=== PATIENT | female | born 1955 | race Caucasian/White ===

== ENCOUNTER → 2017-09-27 08:19 | Outpatient (CLI) | payer OTHER, SELFPAY ==
--- NOTE | 2017-09-27 08:22 | BI_ITS ---
MAMMOGRAPHY - BILATERAL SCREENING REASON FOR EXAM: Female, 62 years old. Routine annual screening examination. PERTINENT HISTORY: Mother with breast cancer. TECHNIQUE: Digital bilateral breast eduar (3D mammographic acquisition) in the CC and MLO projections. 2-D mediolateral oblique (MLO) and craniocaudad (CC) views of both breasts were obtained. CAD: Full Field Digital Mammography with Computer Added Detection was performed. COMPARISON: Comparison is made with prior study dated December 06, 2016 and December 13, 2014. FINDINGS: Breast Composition: There are scattered areas of fibroglandular density. There are no dominant masses or suspicious calcifications. The previously seen well-defined nodule in the upper lateral portion of the left breast has decreased in size. It presently measures 4.3 mm. Stable scattered calcifications in the upper outer aspect of the right breast. No other significant abnormalities are identified. There has been no significant change since the prior study. BI/SCREENING MAMM (CAD), BILAT IMPRESSION: Stable bilateral screening mammogram. Yearly follow-up mammogram recommended. (A) ASSESSMENT CATEGORY: BIRADS Category 2: Benign. A letter regarding these results will be sent to the patient by the facility within 30 days. Approximately 10% of breast cancers are not detected by mammography. A normal mammogram should not delay biopsy of a clinically suspicious abnormality. [id number] Electronically Signed: Juan Pablo Preston MD at 8:16 EDT Tel [phone], Service support ,
== END ==
PROVIDERS: Visit Provider Obstetrics & Gynecology
DX: Z12.31 Encounter for screening mammogram for malignant neoplasm of breast (principal)
CPT/HCPCS: 77063; 77067

== ENCOUNTER → 2018-12-02 | Outpatient (CLI) | payer OTHER, SELFPAY ==
--- NOTE | 2018-12-02 07:15 | BI_ITS ---
MAMMOGRAPHY - BILATERAL SCREENING 3-D TOMOSYNTHESIS REASON FOR EXAM: Female, 63 years old. Bilateral Screening 3-D tomosynthesis PERTINENT HISTORY: Mother with breast cancer.. TECHNIQUE: 2-D mammograms and 3-D Tomosynthesis of the breast (s) were performed. CAD was performed. COMPARISON: 09/27/2017 FINDINGS: The breast composition is heterogeneously dense that can obscure small breast masses. Scattered benign calcifications are seen. No dense spiculated masses or suspicious microcalcifications are identified. No architectural distortion is identified. There is no skin thickening or retraction. Stable 5 mm nodule in the upper outer quadrant of the left breast. There has been no significant change since the prior study. BI/SCREEN MAMM (CAD) W/VENKATA BILAT IMPRESSION: No mammographic signs of malignancy. Routine yearly mammograms recommended. ASSESSMENT CATEGORY: BIRADS Category 2: Benign. A letter regarding these results will be sent to the patient by the facility within 30 days. FOLLOW UP RECOMMENDATION: Yearly follow up mammogram recommended. (A) Approximately 10% of breast cancers are not detected by mammography. A normal mammogram should not delay biopsy of a clinically suspicious abnormality. Electronically Signed: Tahir Magana MD at 8:32 EDT , Service support ,
== END | disposition home or self-care (01) ==
LOC: OPBI 07:14
PROVIDERS: Family Provider Family Medicine; PCP Family Medicine; Referring Provider Obstetrics & Gynecology; Visit Provider Obstetrics & Gynecology
DX: Z12.31 Encounter for screening mammogram for malignant neoplasm of breast (principal)
CPT/HCPCS: 77063; 77067

== ENCOUNTER → 2020-03-29 16:03 | Outpatient (CLI) | payer OTHER, SELFPAY ==
--- NOTE | 2020-03-29 16:07 | BI_ITS ---
MAMMOGRAPHY - BILATERAL SCREENING REASON FOR EXAM: Female, 65 years old. Routine annual screening examination. PERTINENT HISTORY: Mother with breast cancer. TECHNIQUE: Digital bilateral breast venkata (3D mammographic acquisition) in the CC and MLO projections. 2-D mediolateral oblique (MLO) and craniocaudad (CC) views of both breasts were obtained. CAD: Full Field Digital Mammography with Computer Added Detection was performed. COMPARISON: Comparison is made with prior study dated 12/02/2018 and 09/27/2017. FINDINGS: Breast Composition: The breasts are heterogeneously dense, which may obscure small masses. There are no dominant masses or suspicious calcifications. Stable scattered calcifications in the upper slightly lateral aspect of the right breast. Stable 4.3 mm well-defined nodule in the medial portion of the right breast. No other significant abnormalities are identified. There has been no significant change since the prior study. BI/SCREEN MAMM (CAD) W/VENKATA BILAT IMPRESSION: Stable bilateral screening mammogram. Yearly follow-up mammogram recommended. (A) ASSESSMENT CATEGORY: BIRADS Category 2: Benign. A letter regarding these results will be sent to the patient by the facility within 30 days. Approximately 10% of breast cancers are not detected by mammography. A normal mammogram should not delay biopsy of a clinically suspicious abnormality. [id number] Electronically Signed: Juan Pablo Preston, at 8:04 EST , Service support ,
== END ==
PROVIDERS: PCP Family Medicine; Referring Provider Obstetrics & Gynecology; Visit Provider Obstetrics & Gynecology
DX: Z12.31 Encounter for screening mammogram for malignant neoplasm of breast (principal); Z80.3 Family history of malignant neoplasm of breast
CPT/HCPCS: 77063; 77067

== ENCOUNTER → 2022-01-03 | Outpatient (CLI) | payer MEDICARE, SELFPAY ==
--- NOTE | 2022-01-03 16:48 | BI_ITS ---
MAMMOGRAPHY - BILATERAL SCREENING REASON FOR EXAM: Female, 66 years old. Routine annual screening examination. PERTINENT HISTORY: Mother with breast cancer. TECHNIQUE: Digital bilateral breast venkata (3D mammographic acquisition) in the CC and MLO projections. 2-D mediolateral oblique (MLO) and craniocaudad (CC) views of both breasts were obtained. CAD: Full Field Digital Mammography with Computer Added Detection was performed. COMPARISON: Comparison is made with prior study dated 03/29/2020 and 12/02/2018. FINDINGS: Breast Composition: The breasts are heterogeneously dense, which may obscure small masses. There are no dominant masses or suspicious calcifications. Stable scattered calcifications in the upper slightly lateral aspect of the right breast. The previously seen 4.3 mm well-defined nodule in the medial portion of the right breast has decreased in size and is almost completely resolved. Stable small benign-appearing bilateral axillary lymph nodes. No other significant abnormalities are identified. There has been no significant change since the prior study. BI/SCRN MAMM (CAD)W/VENKATA BILAT IMPRESSION: Stable bilateral screening mammogram. Yearly follow-up mammogram recommended. (A) ASSESSMENT CATEGORY: BIRADS Category 2: Benign. A letter regarding these results will be sent to the patient by the facility within 30 days. Approximately 10% of breast cancers are not detected by mammography. A normal mammogram should not delay biopsy of a clinically suspicious abnormality. [id number] Electronically Signed: Juan Pablo Preston MD at 8:37 EDT ,
== END | disposition home or self-care (01) ==
PROVIDERS: PCP Family Medicine; Visit Provider Family Medicine
DX: Z12.31 Encounter for screening mammogram for malignant neoplasm of breast (principal); Z80.3 Family history of malignant neoplasm of breast
CPT/HCPCS: 77063; 77067

== ENCOUNTER → 2023-11-25 | Outpatient (CLI) | payer MEDICARE, SELFPAY ==
--- NOTE | 2023-11-25 16:29 | BI_ITS ---
MAMMOGRAPHY - BILATERAL SCREENING REASON FOR EXAM: Female, 68 years old. Routine annual screening examination. PERTINENT HISTORY: Mother with breast cancer. TECHNIQUE: Digital bilateral breast venkata (3D mammographic acquisition) in the CC and MLO projections. 2-D mediolateral oblique (MLO) and craniocaudad (CC) views of both breasts were obtained. CAD: Full Field Digital Mammography with Computer Added Detection was performed. COMPARISON: Comparison is made with prior study January 03, 2022 and March 29, 2020. FINDINGS: Breast Composition: The breasts are heterogeneously dense, which may obscure small masses. There are no dominant masses or suspicious calcifications. Stable scattered calcifications in the upper slightly lateral aspect the right breast. No other significant abnormalities are identified. There has been no significant change since the prior study. BI/SCRN MAMM (CAD)W/VENKATA BILAT IMPRESSION: Stable bilateral screening mammogram. Yearly follow-up mammogram recommended. (A) ASSESSMENT CATEGORY: BIRADS Category 2: Benign. A letter regarding these results will be sent to the patient by the facility within 30 days. Approximately 10% of breast cancers are not detected by mammography. A normal mammogram should not delay biopsy of a clinically suspicious abnormality. [id number] Electronically Signed: Juan Pablo Preston MD at 7:39 EDT ,
== END | disposition home or self-care (01) ==
LOC: OPBI 11-26 07:11
PROVIDERS: PCP Family Medicine; Referring Provider Family Medicine; Visit Provider Family Medicine
DX: Z12.31 Encounter for screening mammogram for malignant neoplasm of breast (principal)
CPT/HCPCS: 77063; 77067

== ENCOUNTER → 2025-04-12 | Outpatient (CLI) | payer MEDICARE, SELFPAY ==
--- NOTE | 2025-04-12 16:58 | BI_ITS ---
EXAM: SCRN MAMM (CAD)W/VENKATA BILAT DATE: 04/12/2025 CLINICAL HISTORY: F, Age 70 y/o , SCREENING TECHNIQUE: Procedure Code: [id number] Modality: MG Procedure: SCRN MAMM (CAD)W/VENKATA BILAT COMPARISON: Prior exam(s) were compared FINDINGS: TISSUE DENSITY: The breasts are heterogeneously dense, which may obscure small masses. Bilateral Breast Mammographic Findings: No significant masses, calcifications or other abnormalities are identified. BI/SCRN MAMM (CAD)W/VENKATA BILAT IMPRESSION: No mammographic evidence of malignancy in either breast. OVERALL FINAL ASSESSMENT BI-RADS 1: NEGATIVE. RECOMMENDATION: Routine annual follow-up in 1 Year Additional Recommendation none A letter with findings and recommendations will be mailed to the patient. Reading Location: [id number]
--- OUTSIDE RECORDS SUMMARY | 2025-04-13 07:10 | XMS RPT_ITS | CCD ---
Author Organization [facility] Care Team Providers Care Forest Fire Equipment Operator Name Role Phone CRUZHAVENNIKOLAY Ly Unavailable Unavailable Gina FOLEY, Salty Salas Unavailable [phone] Hunter FOLEY, Dr. Molina Unavailable [facility], . Unavailable [phone] Adán MAIL DISTRIBUTOR, Mellisa Unavailable Benjamin GURROLAN, Tish Unavailable Unavailable Amanda LAZCANO, Raffy Mcfarland Unavailable Gisell Patel Unavailable Unavailable Manuel MAIL DISTRIBUTOR, Jose Unavailable Unavailable Angie Farley R Unavailable Unavailable Tommy ACCOUNTING MANAGER CPA, Celeste Unavailable Unavailable Vess MAIL DISTRIBUTOR, Neilee L Unavailable Unavailable Unavailable Unavailable SALTY RAMOS Admitting Unavailable TINO BILLS Consulting Unavailable SALTY RAMOS Attending Unavailable SALTY RAMOS Primary Care Unavailable PROVIDER, UNKNOWN Consulting Unavailable PROVIDER, UNKNOWN Consulting Unavailable PROVIDER, UNKNOWN Consulting Unavailable Nini Jolly LPN Unavailable Unavailable Salty Ramos Referring Unavailable Salty Ramos Attending Unavailable Salty Ramos Primary Care Unavailable Allergies Allergy Classification Reported Allergen(s) Allergy Type Date of Onset Reaction(s) Facility (20 sources) Ciprofloxacin Drug Allergy [facility].; [facility], [facility]. (20 sources) Lisinopril Drug Allergy Cough [facility], [facility].; [facility], [facility]. Medications Current Medications Medication Drug Class(es) Dates Sig (Normalized) Sig (Original) atorvastatin 10 mg oral tablet (20 sources) HMG-CoA Reductase Inhibitor Start: 10-31-2023 atorvastatin 10 mg tablet ; 1 (one) Tablet qhs for 0 days Quantity: 90 {Tablet} Refills: 3 Ordered: 14-Nov-2024 MD Salty Ramos Start: 25-Mar-2024 Start: 08-06-2023 atorvastatin 1 0 mg tablet ; 1 (one) Tablet qhs for 0 days Quantity: 90 {Tablet} Refills: 0 Ordered: 06-Aug-2023 MD Salty Ramos Start: 06-Aug-2023 hydroCHLOROthiazide 25 mg oral tablet (20 sources) Thiazide Diuretic Start: 03-25-2024 hydroCHLOROthiazide 25 mg tablet ; 1 (one) Tablet daily for 0 days Quantity: 90 {Tablet} Refills: 3 Ordered: 25-Mar-2024 MD Salty Ramos Start: 25-Mar-2024 Start: 02-11-2024 hydroCHLOROthi azide 12.5 mg tablet ; 1 (one) Tablet daily for 0 days Quantity: 90 {Tablet} Refills: 0 Ordered: 11-Feb-2024 MD Salty Ramos Start: 11-Feb-2024 Start: 08-06-2023 hydroCHLOROthi azide 12.5 mg tablet ; 1 (one) Tablet daily for 0 days Quantity: 90 {Tablet} Refills: 1 Ordered: 06-Aug-2023 MD Salty Ramos Start: 06-Aug-2023 losartan potassium 50 mg oral tablet (20 sources) Angiotensin 2 Receptor Garrick Start: 04-27-2024 losartan 50 mg table t ; 1 (one) Tablet daily for 0 days Quantity: 90 {Tablet} Refills: 3 Ordered: 27-Apr-2024 MD Salty Ramos Start: 27-Apr-2024 Comments: take with the 25mg Start: 02-11-2024 losartan 50 mg tablet ; 1 (one) Tablet daily for 0 days Quantity: 90 {Tablet} Refills: 3 Ordered: 25-Mar-2024 MD Salty Ramos Start: 25-Mar-2024 Start: 07-28-2023 losartan 50 mg tablet ; 1 (one) Tablet daily for 0 days Quantity: 90 {Tablet} Refills: 1 Ordered: 28-Jul-2023 MD Salty Ramos Start: 28-Jul-2023 Start: 03-27-2023 losartan 25 mg tablet ; 1 (one) tablet daily for 0 days Quantity: 90 {Tablet} Refills: 3 Ordered: 25-Mar-2024 MD Salty Ramos Start: 25-Mar-2024 Comments: adding to the 50 mg Comment on above: adding to the 50 mg take with the 25mg metFORMIN hydrochloride 1000 mg oral tablet (20 sources) Biguanide Start: 10-31-2023 metFORMIN 1,000 mg tablet ; 1/2 tablet Tablet q12hrs for 0 days Quantity: 90 {Tablet} Refills: 3 Ordered: 25-Mar-2024 MD Salty Ramos Start: 25-Mar-2024 Start: 08-06-2023 metFORMIN 1,00 0 mg tablet ; 1/2 tablet Tablet q12hrs for 0 days Quantity: 90 {Tablet} Refills: 0 Ordered: 06-Aug-2023 MD Salty Ramos Start: 06-Aug-2023 Start: 06-30-2018 End: 09-30-2018 take 1 tablet by mouth once daily MetFORMIN HCl ER 750 MG Oral Tablet Extended Release 24 Hour ; 1 (one) Tablet Tablet daily for 0 days Quantity: 30 {Tablet} Refills: 3 Ordered: 30-Sep-2018 MD Salty Ramos Start: 30-Jun-2018 End: 30-Sep-2018 Status: Inactive semaglutide 7 mg oral tablet (14 sources) Start: 12-17-2024 semaglutide 7 mg tablet ; 1 (one) tablet daily for 0 days Quantity: 90 {Tablet} Refills: 0 Ordered: 17-Dec-2024 MD Salty Ramos Start: 17-Dec-2024 Start: 09-23-2024 semaglutide 7 mg tablet ; 1 (one) tablet daily for 0 days Quantity: 90 {Tablet} Refills: 0 Ordered: 23-Sep-2024 MD Salty Ramos Start: 23-Sep-2024 Start: 03-25-2024 semaglutide 3 mg tablet ; 1 (one) tablet daily for 0 days Quantity: 90 {Tablet} Refills: 1 Ordered: 25-Mar-2024 KEIRY Mccain Start: 25-Mar-2024 Completed/Discontinued Medications Medication Drug Class(es) Dates Sig (Normalized) Sig (Original) amLODIPine 5 mg oral tablet (20 sources) Dihydropyridine Calcium Channel Garrick Start: 08-14-2020 End: 06-08-2021 take 1 tablet by mouth once daily amLODIPine Besylate 5 MG Oral Tablet ; 1 (one) Tablet daily for 0 days Quantity: 90 {Tablet} Refills: 3 Ordered: 08-Jun-2021 Adán KEIRY Pak Start: 14-Aug-2020 End: 08-Jun-2021 Status: Inactive amoxicillin 875 mg / clavulanate 125 mg oral tablet (20 sources) Penicillin-class Antibacterial Start: 04-20-2018 End: 06-16-2018 take 1 tablet by mouth twice daily Amoxicillin-Pot Clavulanate 875-125 MG Oral Tablet ; 1 (one) Tablet bid for 0 days Quantity: 20 {Tablet} Refills: 0 Ordered: 16-Jun-2018 KEIRY Alexander Start: 20-Apr-2018 End: 16-Jun-2018 Status: Inactive blood-glucose meter kit (20 sources) Start: 07-03-2022 End: 03-27-2023 blood-glucose meter kit ; 1 (one) Kit as directed for 0 days Quantity: 1 {Each} Refills: 0 Ordered: 27-Mar-2023 KEIRY Mccain Start: 03-Jul-2022 End: 27-Mar-2023 Status: Inactive 24 hr dilTIAZem hydrochloride 180 mg extended release oral tablet (20 sources) Calcium Channel Garrick Start: 07-03-2022 End: 10-23-2022 take 1 tablet by mouth once daily dilTIAZem HCl ER Coated Beads 180 MG Oral Tablet Extended Release 24 Hour ; 1 (one) Tablet daily for 0 days Quantity: 30 {Tablet} Refills: 0 Ordered: 23-Oct-2022 MD Salty Ramos Start: 03-Jul-2022 End: 23-Oct-2022 Status: Inactive empagliflozin 10 mg oral tablet (20 sources) Sodium-Glucose Cotransporter 2 Inhibitor Start: 03-27-2022 End: 04-12-2022 take 1 tablet by mouth once daily Jardiance 10 MG Oral Tablet ; 1 (one) Tablet daily for 0 days Quantity: 90 {Tablet} Refills: 1 Ordered: 12-Apr-2022 MD Salty Ramos Start: 27-Mar-2022 End: 12-Apr-2022 Status: Inactive glipiZIDE 10 mg oral tablet (20 sources) Sulfonylurea Start: 03-18-2024 End: 06-24-2024 glipiZIDE 10 mg tablet ; 1 (one) Tablet daily for 0 days Quantity: 90 {Tablet} Refills: 3 Ordered: 24-Jun-2024 KEIRY Mccain Start: 25-Mar-2024 End: 24-Jun-2024 Status: Discontinued Start: 09-29-2023 glipiZIDE 10 m g tablet ; 1 (one) Tablet daily for 0 days Quantity: 90 {Tablet} Refills: 1 Ordered: 29-Sep-2023 MD Salty Ramos Start: 29-Sep-2023 Start: 03-27-2023 glipiZIDE 10 m g tablet ; 1 (one) Tablet daily for 0 days Quantity: 90 {Tablet} Refills: 1 Ordered: 27-Mar-2023 MD Slaty Ramos Start: 27-Mar-2023 hydroCHLOROthiazide 12.5 mg / losartan potassium 50 mg oral tablet (20 sources) Thiazide Diuretic, Angiotensin 2 Receptor Garrick Start: 09-30-2018 End: 12-28-2018 take 1 tablet by mouth once daily Losartan Potassium-HCTZ 50-12.5 MG Oral Tablet ; 1 (one) Tablet daily for 0 days Quantity: 60 {Tablet} Refills: 5 Ordered: 28-Dec-2018 KEIRY Mccain Start: 30-Sep-2018 End: 28-Dec-2018 Status: Inactive SITagliptin 50 mg oral tablet (20 sources) Dipeptidyl Peptidase 4 Inhibitor Start: 07-02-2019 End: 05-08-2020 take 1 tablet by mouth once daily Januvia 50 MG Oral Tablet ; 1 (one) Tablet Tablet daily for 0 days Quantity: 90 {Tablet} Refills: 1 Ordered: 08-May-2020 KEIRY Mccain Start: 02-Jul-2019 End: 08-May-2020 Status: Inactive sulfamethoxazole 800 mg / trimethoprim 160 mg oral tablet (20 sources) Dihydrofolate Reductase Inhibitor Antibacterial, Sulfonamide Antimicrobial Start: 08-26-2018 End: 09-30-2018 take 1 tablet by mouth twice daily Sulfamethoxazole-T rimethoprim 800-160 MG Oral Tablet ; 1 (one) Tablet bid for 0 days Quantity: 10 {Tablet} Refills: 0 Ordered: 30-Sep-2018 KEIRY Ngo Start: 26-Aug-2018 End: 30-Sep-2018 Status: Inactive Problems Active Problems Problem Classification Problem Date Documented Da te Episodic/Chronic Chronic kidney disease (20 sources) Chronic kidney disease stage 3A ; Translations: [Chronic kidney disease, Stage III (moderate)] 03-25-2024 Chronic Diabetes mellitus with complications (20 sources) Proteinuric nephropathy due to diabetes mellitus; Translations: [Type 2 diabetes mellitus with diabetic nephropathy] 07-03-2022 Chronic Diabetes mellitus without complication (20 sources) Type 2 diabetes mellitus; Translations: [Type 2 diabetes mellitus without complications] 03-27-2023 Chronic Comment on above: metformin, glipizide metformin, glipizide , semeglutide Disorders of lipid metabolism (20 sources) Hyperlipidemia; Translations: [Hyperlipidemia, unspecified] 03-19-2023 Chronic Comment on above: atorvastatin 07/2023 atorvastatin Essential hypertension (20 sources) Hypertensive disorder; Translations: [Essential (primary) hypertension] 03-27-2023 Chronic Comment on above: hctz, losartan, hctz, losartan 25 an d 50 Genitourinary symptoms and ill-defined conditions (20 sources) Dysuria; Translations: [Dysuria] 08-26-2018 Episodic Nausea and vomiting (20 sources) Nausea; Translations: [Nausea] 11-20-2021 Episodic Other gastrointestinal disorders (20 sources) Stool finding; Translations: [Other fecal abnormalities] 11-20-2021 Episodic Other lower respiratory disease (20 sources) Angiotensin-converti ng-enzyme inhibitor adverse reaction; Translations: [Cough] 03-27-2023 Episodic Other lower respiratory disease (20 sources) Chronic cough; Translations: [Cough] 07-03-2022 Episodic Other nutritional; endocrine; and metabolic disorders (20 sources) Body mass index 30+ - obesity; Translations: [Body mass index (BMI) 31.0-31.9, adult] 03-27-2023 Chronic Other nutritional; endocrine; and metabolic disorders (2 sources) Body mass index 25-29 - overweight; Translations: [Body mass index (BMI) 29.0-29.9, adult] 07-02-2019 Episodic Other nutritional; endocrine; and metabolic disorders (20 sources) Overweight in adulthood with body mass index of 25 or more but less than 30; Translations: [Body mass index (BMI) 29.0-29.9, adult] 07-02-2019 Episodic Other screening for suspected conditions (not mental disorders or infectious disease) (20 sources) Patient encounter status; Translations: [Encounter for screening mammogram for malignant neoplasm of breast] Onset: 03-18-2025 03-27-2023 Episodic Other skin disorders (20 sources) Disorder of skin of upper limb; Translations: [Disorder of the skin and subcutaneous tissue, unspecified] 07-03-2022 Episodic Other skin disorders (20 sources) Seborrheic keratosis; Translations: [Other seborrheic keratosis] 06-30-2018 Episodic Pneumonia (except that caused by tuberculosis or sexually transmitted disease) (20 sources) Community acquired pneumonia; Translations: [Pneumonia, unspecified organism] 04-10-2018 Episodic Residual codes; unclassified (20 sources) Up-to-date with immunizations; Translations: [Personal history of other drug therapy] 03-22-2021 Episodic Residual codes; unclassified (20 sources) Non-smoker; Translations: [Other specified health status] 03-27-2023 Episodic Residual codes; unclassified (20 sources) Not up to date with immunizations; Translations: [Other specified personal history presenting hazards to health] 03-27-2023 Episodic Comment on above: needs shingrix, Pneu mo 24 in 2022 needs shingrix Residual codes; unclassified (20 sources) Cancer cervix screening - not needed; Translations: [Procedure and treatment not carried out for other reasons] 03-27-2023 Episodic Unclassified (1 source) Unknown / UNK(Unknown) Onset: 02-19-2017 Unclassified (20 sources) Number of Children 03-27-2023 Comment on above: 2. Unclassified (20 sources) Number of Pregnancies 03-27-2023 Comment on above: 2. Unclassified (20 sources) Vaginal deliveries 03-27-2023 Comment on above: 2. Unclassified (20 sources) MCR Well Adult - In general the patient feels well with no complaints, has good energy level and is sleeping well. The patient does not exercise and sleeps 5 hours per night. The patient denies having trouble with bathing, dressing/grooming, toileting, preparing meals and ambulating. The patient denies having trouble with grocery shopping, driving, use of telephone, housework, laundry, preparing/taking medications and finances. The patient has a Healthcare Power of Solution Make Up Operator and a Living Will. 03-28-2023 Unclassified (20 sources) [ADDITIONAL REASON] Follow-up for multiple chronic conditions (RAH) - The patient is here for follow-up of hypertension, hyperlipidemia and diabetes. The patient always takes the prescribed medications. No side effects noted. The patient has an active lifestyle but no regular exercise program. The patient's glucose levels are monitored on rare occasion (has supplies but never checks), out of office blood pressure checks occur rarely and dietary compliance is fair often eating foods not normally recommended. The patient has been seen by an eyelet cutter in the past 12 months, but has not had numbness in the feet, had tingling in the feet or had burning in the feet. 03-28-2023 Unclassified (20 sources) Follow-up for multiple chronic conditions (RAH) - The patient is here for follow-up of hypertension, hyperlipidemia and diabetes. The patient always takes the prescribed medications. No side effects noted. The patient has an active lifestyle but no regular exercise program. The patient's glucose levels are monitored on rare occasion, out of office blood pressure checks occur rarely and dietary compliance is fair often eating foods not normally recommended. The patient has been seen by an eyelet cutter in the past 12 months, but has not had numbness in the feet, had tingling in the feet or had burning in the feet. Note for Multiple chronic conditions follow-up: -She has a glucometer but does not use it. She cannot say why. 10-23-2022 Unclassified (20 sources) Follow-up for multiple chronic conditions (RAH) - The patient is here for follow-up of hypertension, hyperlipidemia and diabetes. The patient always takes the prescribed medications. No side effects noted. The patient has an active lifestyle but no regular exercise program. The patient's glucose levels are monitored on rare occasion, out of office blood pressure checks occur rarely and dietary compliance is fair often eating foods not normally recommended. The patient has been seen by an eyelet cutter in the past 12 months, but has not had numbness in the feet, had tingling in the feet or had burning in the feet. 07-03-2022 Unclassified (20 sources) [ADDITIONAL REASON] Follow-up for multiple chronic conditions (RAH) - The patient is here for follow-up of hypertension, hyperlipidemia and diabetes. The patient always takes the prescribed medications. No side effects noted. The patient has an active lifestyle but no regular exercise program. The patient's glucose levels are monitored on rare occasion, out of office blood pressure checks occur rarely and dietary compliance is fair often eating foods not normally recommended. The patient has been seen by an eyelet cutter in the past 12 months, but has not had numbness in the feet, had tingling in the feet or had burning in the feet. 03-27-2022 Unclassified (20 sources) Follow-up for multiple chronic conditions (RAH) - The patient is here for follow-up of hypertension, hyperlipidemia and diabetes. The patient always takes the prescribed medications. No side effects noted (needs refills sent to [facility] today.). The patient has an active lifestyle but no regular exercise program. The patient's glucose levels are monitored on rare occasion, out of office blood pressure checks occur rarely and dietary compliance is fair often eating foods not normally recommended. The patient has been seen by an eyelet cutter in the past 12 months, but has not had numbness in the feet, had tingling in the feet or had burning in the feet. 12-19-2021 Unclassified (18 sources) Follow-up for multiple chronic conditions (RAH) - The patient is here for follow-up of hypertension, hyperlipidemia and diabetes. The patient usually takes the prescribed medications. No side effects noted. The patient has an active lifestyle but no regular exercise program. The patient's glucose levels are monitored on rare occasion, out of office blood pressure checks occur rarely and dietary compliance is fair often eating foods not normally recommended. The patient has been seen by an eyelet cutter in the past 12 months, but has not had numbness in the feet, had tingling in the feet or had burning in the feet. 03-22-2021 Unclassified (10 sources) [ADDITIONAL REASON] MCR Well Adult - In general the patient feels well with no complaints, has good energy level and is sleeping well. The patient takes no supplemental vitamins & iron. The patient exercises 3 - 4 times per week and sleeps 7 hours per night. The patient denies having trouble with bathing, dressing/grooming, toileting, preparing meals and ambulating. The patient denies having trouble with grocery shopping, driving, use of telephone, housework, laundry, preparing/taking medications and finances. The patient does not have Healthcare Power of Solution Make Up Operator or Living Will. 03-22-2021 Unclassified (20 sources) Follow-up for multiple chronic conditions (RAH) - The patient is here for follow-up of hypertension, hyperlipidemia and diabetes. The patient usually takes the prescribed medications. No side effects noted. The patient has an active lifestyle but no regular exercise program. The patient's glucose levels are monitored on rare occasion, out of office blood pressure checks occur rarely and dietary compliance is fair often eating foods not normally recommended. The patient has not been seen by an eyelet cutter in the past 12 months (didnt go because she didnt have insurance), had numbness in the feet, had tingling in the feet or had burning in the feet. 05-08-2020 Unclassified (20 sources) Well adult female - The patient feels well with minor complaints, has good energy level and is sleeping well. The patient takes no supplemental vitamins & iron. The patient does not exercise. The patient sleeps 6 hours per night. 10-22-2019 Unclassified (20 sources) [ADDITIONAL REASON] Pre-operative clearance - Note for Pre-operative clearance: -Plans right total hip replacement with [facility] in Late October. 10-22-2019 Unclassified (20 sources) [ADDITIONAL REASON] Follow-up for multiple chronic conditions (RAH) - The patient is here for follow-up of hypertension, hyperlipidemia and diabetes. The patient usually takes the prescribed medications. No side effects noted. The patient has an active lifestyle but no regular exercise program. The patient's glucose levels are monitored on rare occasion, out of office blood pressure checks occur rarely and dietary compliance is fair often eating foods not normally recommended. The patient has been seen by an eyelet cutter in the past 12 months, but has not had numbness in the feet, had tingling in the feet or had burning in the feet. 10-22-2019 Unclassified (20 sources) Follow-up for multiple chronic conditions (RAH) - The patient is here for follow-up of hypertension, hyperlipidemia and diabetes. The patient usually takes the prescribed medications. No side effects noted. The patient has an active lifestyle but no regular exercise program. The patient's glucose levels are monitored on rare occasion, out of office blood pressure checks occur rarely and dietary compliance is fair often eating foods not normally recommended. The patient has been seen by an eyelet cutter in the past 12 months, but has not had numbness in the feet, had tingling in the feet or had burning in the feet. The patient's last lipid profile was (06/2018). Note for Multiple chronic conditions follow-up: -Acute stress this week due to sudden of family friend. 07-02-2019 Unclassified (20 sources) Well adult female - The patient feels well with no complaints, has good energy level and is sleeping well. The patient takes supplemental vitamins. The patient does not exercise. The patient sleeps 5 hours per night. 06-30-2018 Unclassified (20 sources) [ADDITIONAL REASON] Follow up for multiple chronic conditions - The patient is here for follow-up of diabetes, hyperlipidemia and hypertension. The patient usually takes the prescribed medications. No side effects noted. The patient has an active lifestyle but no regular exercise program. The patient's glucose levels are monitored on rare occasion and out of office blood pressure checks occur rarely. 06-30-2018 Unclassified (19 sources) MCR Well Adult - In general the patient feels well with no complaints, has good energy level and is sleeping well. The patient takes no supplemental vitamins & iron. The patient exercises 3 - 4 times per week and sleeps 7 hours per night. The patient denies having trouble with bathing, dressing/grooming, toileting, preparing meals and ambulating. The patient denies having trouble with grocery shopping, driving, use of telephone, housework, laundry, preparing/taking medications and finances. The patient does not have Healthcare Power of Solution Make Up Operator or Living Will. 03-22-2021 Unclassified (20 sources) Follow-up for multiple chronic conditions (RAH) - The patient is here for follow-up of hypertension, hyperlipidemia and diabetes. The patient always takes the prescribed medications. No side effects noted. The patient has an active lifestyle but no regular exercise program. The patient's glucose levels are monitored on rare occasion (has supplies but never checks), out of office blood pressure checks occur rarely and dietary compliance is fair often eating foods not normally recommended. The patient has been seen by an eyelet cutter in the past 12 months, but has not had numbness in the feet, had tingling in the feet or had burning in the feet. 03-28-2023 Unclassified (14 sources) [ADDITIONAL REASON] MCR Well Adult - In general the patient feels well with no complaints, has good energy level and is sleeping well. The patient does not exercise and sleeps 5 hours per night. The patient denies having trouble with bathing, dressing/grooming, toileting, preparing meals and ambulating. The patient denies having trouble with grocery shopping, driving, use of telephone, housework, laundry, preparing/taking medications and finances. The patient has a Healthcare Power of Solution Make Up Operator and a Living Will. 03-28-2023 Unclassified (9 sources) [ADDITIONAL REASON] Well adult female - The patient feels well with minor complaints, has good energy level and is sleeping well. The patient takes no supplemental vitamins & iron. The patient does not exercise. The patient sleeps 6 hours per night. 10-22-2019 Unclassified (6 sources) Follow up for multiple chronic conditions - The patient is here for follow-up of diabetes, hyperlipidemia and hypertension. The patient usually takes the prescribed medications. No side effects noted. The patient has an active lifestyle but no regular exercise program. The patient's glucose levels are monitored on rare occasion and out of office blood pressure checks occur rarely. 06-30-2018 Unclassified (6 sources) [ADDITIONAL REASON] Well adult female - The patient feels well with no complaints, has good energy level and is sleeping well. The patient takes supplemental vitamins. The patient does not exercise. The patient sleeps 5 hours per night. 06-30-2018 Unclassified (1 source) Pre-operative clearance - Note for Pre-operative clearance: -Plans right total hip replacement with [facility] in Late October. 10-22-2019 Unclassified (1 source) [facility] Well Adult 03-25-2024 Unclassified (13 sources) [facility] Well Adult - In general the patient feels well with no complaints, has good energy level and is sleeping well. The patient takes no supplemental vitamins & iron. The patient does not exercise. The patient denies having trouble with bathing, dressing/grooming, toileting, preparing meals and ambulating. The patient denies having trouble with grocery shopping, driving, use of telephone, housework, laundry, preparing/taking medications and finances. The patient has a Healthcare Power of Solution Make Up Operator and a Living Will. 03-25-2024 Unclassified (13 sources) [ADDITIONAL REASON] Follow-up for multiple chronic conditions (RAH) - The patient is here for follow-up of hypertension, hyperlipidemia and diabetes. The patient always takes the prescribed medications. No side effects noted. The patient has an active lifestyle but no regular exercise program. The patient's glucose levels are monitored on rare occasion (has supplies but never checks) and out of office blood pressure checks occur rarely. The patient has not been seen by an eyelet cutter in the past 12 months, had numbness in the feet, had tingling in the feet or had burning in the feet. 03-25-2024 Unclassified (10 sources) Follow-up for multiple chronic conditions (RAH) - The patient is here for follow-up of hypertension, hyperlipidemia and diabetes. The patient always takes the prescribed medications. No side effects noted. The patient has an active lifestyle but no regular exercise program. The patient's glucose levels are monitored on rare occasion (has supplies but never checks) and out of office blood pressure checks occur rarely. The patient has not been seen by an eyelet cutter in the past 12 months, had numbness in the feet, had tingling in the feet or had burning in the feet. 06-24-2024 Unclassified (1 source) [ADDITIONAL REASON] MCR Well Adult - In general the patient feels well with no complaints, has good energy level and is sleeping well. The patient takes no supplemental vitamins & iron. The patient does not exercise. The patient denies having trouble with bathing, dressing/grooming, toileting, preparing meals and ambulating. The patient denies having trouble with grocery shopping, driving, use of telephone, housework, laundry, preparing/taking medications and finances. The patient has a Healthcare Power of Solution Make Up Operator and a Living Will. 03-25-2024 Urinary tract infections (20 sources) Acute cystitis; Translations: [Acute cystitis without hematuria] 06-16-2018 Episodic Past or Other Problems Problem Classification Problem Date Documented Date Episodic/Chronic Unclassified (1 source) PHILIPP REDDY RANDOM UDS Onset: 02-19-2017 Unclassified (20 sources) Nausea - The onset of the nausea has been sudden and has been occurring in a persistent pattern for 1 week. The course has been increasing. The nausea has no relationship to meals (no appetite). The symptoms have no aggravating factors. There has been no associated abdominal distention, abdominal pain, altered sensorium, aspiration into lungs, chest pain, dark urine, diarrhea, dysentery, dysphagia, dysuria, fever, headache, hematemesis, jaundice, melena, myalgia, neck stiffness, , renal disease, tinnitus, upper respiratory infection symptoms, use of alcohol, use of medications, vertigo, weight loss or vomiting. 11-20-2021 Unclassified (20 sources) Follow-up for multiple chronic conditions (RAH) - The patient is here for follow-up of hypertension, hyperlipidemia and diabetes. The patient usually takes the prescribed medications. Side effects noted (feels metformin causes GI upset). The patient has an active lifestyle but no regular exercise program. The patient's glucose levels are monitored on rare occasion, out of office blood pressure checks occur rarely and dietary compliance is fair often eating foods not normally recommended. The patient has been seen by an eyelet cutter in the past 12 months and had an A1c level completed in the past 3 months, but has not had numbness in the feet, had tingling in the feet or had burning in the feet. The patient's last lipid profile was (06/2018). Note for Multiple chronic conditions follow-up: -Has not completed Cologard. She states she has irregular bm's and it is hard for her to plan ahead. She plans to complete it at some point. 12-30-2018 Unclassified (20 sources) Follow-up for multiple chronic conditions (RAH) - The patient is here for follow-up of hypertension, hyperlipidemia and diabetes. The patient always takes the prescribed medications. No side effects noted. The patient has an active lifestyle but no regular exercise program. The patient's glucose levels are monitored on rare occasion, out of office blood pressure checks occur rarely and dietary compliance is fair often eating foods not normally recommended. The patient has had an A1c level completed in the past 3 months, but has not been seen by an eyelet cutter in the past 12 months, had numbness in the feet, had tingling in the feet or had burning in the feet. The patient's last lipid profile was (06/2018). The patient states that weight has decreased (2#). 09-30-2018 Unclassified (20 sources) Unspecified Diagnosis 06-30-2018 Unclassified (20 sources) UTI - Symptoms include urinary frequency, urinary urgency, hematuria and dark urine. There is no assiciated pain. There is no radiation. The patient describes the pain as burning. Onset was sudden 8 hour(s) ago. The symptoms occur constantly. The patient describes this as moderate in severity and worsening. Associated symptoms do not include fever, chills or nausea. 06-16-2018 Unclassified (20 sources) Cold Symptoms - Symptoms include nasal congestion, dry cough, wheezing and general malaise, but do not include fever. The onset was gradual 3 week(s) ago. The patient describes this as moderate in severity and worsening. The patient is not currently being treated for this problem. Risk factors do not include smoking. The patient has not been exposed to secondhand smoke. 04-10-2018 Urinary tract infections (20 sources) Urinary tract infections 08-26-2018 Results Test Name Value Interpretation Reference Range Facility Laboratory - Hematology and Cell countson 12-16-2024 HbA1c (Bld) [Mass fraction] 7.0 % Normal 4.6 - 7.1 % [facility] [employer]. Laboratory - Hematology and Cell countson 09-23-2024 HbA1c (Bld) [Mass fraction] 7.7 % Abnormal 4.6 - 7.1 % [facility] [employer]. Laboratory - Hematology and Cell countson 06-24-2024 HbA1c (Bld) [Mass fraction] 7.6 % Abnormal 4.6 - 7.1 % [facility] [employer]. ALBUMIN, RANDOM URINE W/CREA TININEon 03-26-2024 ALBUMIN, URINE 0.2 mg/dL Normal See Note: [facility] Comment on above: Result Comment: Refe rence Range: Reference Range Not established Performed By: #### 6 517 #### [facility] [address], [address] [place] [id number] Receiving Clerk: Zan Brown MD ALBUMIN/CREATININE RATIO, RANDOM URINE 3 mg/g creat Normal <30 [facility] Comment on above: Result Comment: The ADA defines abnormalities in albumin excretion as follows: Albuminuria Category Result (mg/g creatinine) Normal to Mildly increased <30 Moderately increased 30-299 Severely increased > OR = 300 The ADA recommends that at least two of three specimens collected within a 3-6 month period be abnormal before considering a patient to be within a diagnostic category. Performed By: #### 6 517 #### [facility] [address], [address] Receiving Clerk: Zan Brown MD Creatinine (U) [Mass/Vol] 63 mg/dL Normal 20-275 [facility] Comment on above: Performed By: #### 6 517 #### [facility] [address], [address] [place] [address] Receiving Clerk: Zan Brown MD Laboratory - Chemistry and C hemistry - challengeon 03-25-2024 Creatinine (U) [Mass/Vol] 63 mg/dL Normal 20 - 275 mg/dL [facility].; [facility], [facility] No Panel Informationon 03-25 ALBUMIN, URINE 0.2 mg/dL Normal [facility], [facility].; [facility], [facility] ALBUMIN/CREATININE RATIO, RANDOM URINE 3 {mg/g_creat} Normal [facility].; [facility], [facility] CBC + DIFFon 03-17-2024 Baso # 0.01 x10EE3/UL Normal 0.00 - 0.10 [facility] Comment on above: Performed By: #### 2 68298 #### [facility],[address] [place] [address] Basophils/100 WBC (Bld) 0.1 % Normal 0.0 - 2.0 % [facility], [facility].; [facility], [facility]. Comment on above: Performed By: #### 2 55247 #### [facility],[address] [place] [address] CBC + DIFF Normal [facility] Comment on above: Result Comment: CBC- COMPLETE BLOOD COUNT Performed By: #### 2 60296 #### [facility],[address] [place] [address] EO # 0.46 x10EE3/UL Normal 0.00 - 0.50 [facility] Comment on above: Performed By: #### 2 44698 #### [place] [address] Eosinophils/100 WBC (Bld) 6.4 % Normal 0.0 - 7.0 % [facility], [facility].; [facility], [facility]. Comment on above: Performed By: #### 2 92929 #### [place] [address] Erythrocyte distribution width (RBC) [Ratio] 13.3 % Normal 12.0 - 15.6 % [facility], [facility].; [facility] Comment on above: Performed By: #### 2 11546 #### [place] [address] Hematocrit (Bld) [Volume fraction] 39.0 % Normal 34.0 - 46.0 % [facility], [facility].; [facility] Comment on above: Performed By: #### 2 08516 #### [place] [address] Hemoglobin (Bld) [Mass/Vol] 13.3 g/dL Normal 12.0 - 16.0 g/dL [facility], [facility].; [facility], [employer]. Comment on above: Performed By: #### 2 34730 #### [place] [address] Lymph # 1.68 x10EE3/UL Normal 0.80 - 2.80 [facility] Comment on above: Performed By: #### 2 67333 #### [place] [address] Lymphocytes/100 WBC (Bld) 23.5 % Normal 20.0 - 45.0 % [facility], [facility].; [facility], [employer]. Comment on above: Performed By: #### 2 00281 #### [place] [address] MANUAL DIFF N/A Normal [facility].; [facility] [facility] Comment on above: Performed By: #### 2 93704 #### [place] [address] MCH (RBC) [Entitic mass] 29 pg Normal 27 - 33 pg [facility]; [facility] Comment on above: Performed By: #### 2 59207 #### [place] [address] MCHC 34 X10 3 Normal 32 - 36 [facility] Comment on above: Performed By: #### 2 00013 #### [place] [address] MCV (RBC) [Entitic vol] 86 fL Normal 80 - 99 fL [facility]; [facility] Comment on above: Performed By: #### 2 33940 #### [place] [address] Sargent # 0.33 x10EE3/UL Normal 0.20 - 1.00 [facility] Comment on above: Performed By: #### 2 24366 #### [place] [address] MONOS % 4.6 % Normal 0.0 - 10.0 [facility] Comment on above: Performed By: #### 2 40433 #### [place] [address] Morphology Yassine (Bld) [Interp] N/A Normal [facility]; [facility]. Comment on above: Performed By: #### 2 96771 #### [place] [address] Neut # 4.68 x10EE3/UL Normal 1.50 - 7.10 [facility] Comment on above: Performed By: #### 2 25160 #### [place] [address] Neutrophils/100 WBC (Bld) 65.4 % Normal 46.0 - 76.0 % [facility], [facility]. Comment on above: Performed By: #### 2 65437 #### [facility],[address] [place] [address] PLATELET 361 x10EE3/UL Normal 150 - 450 [facility] Comment on above: Performed By: #### 2 55106 #### [facility],[address] [place] [address] Platelet mean volume (Bld) [Entitic vol] 8.3 fL Normal 6.6 - 10.5 fL [facility], [facility].; [facility], [facility]. Comment on above: Result Comment: AUTO MATED DIFFERENTIAL Performed By: #### 2 55330 #### [address] [address] RBC 4.55 x 10EE6/UL Normal 4.10 - 5.30 [facility] Comment on above: Performed By: #### 2 72138 #### [facility],[address] [place] [address] WBC 7.2 x 10EE3/UL Normal 4.5 - 10.8 [facility] Comment on above: Performed By: #### 2 85395 #### [facility],[address] [place] [address] CMP with eGFRon 03-17-2024 AGE 68 years Normal [facility] Comment on above: Performed By: #### 2 85799 #### [facility],[address] [place] [address] Albumin [Mass/Vol] 4.2 g/dL Normal 3.4 - 5.0 g/dL [facility], [facility].; [facility], [facility]. Comment on above: Performed By: #### 2 94418 #### [facility],[address] [place] [address] Albumin/Globulin [Mass ratio] 1.4 {ratio} Normal 0.9 - 1.6 [facility] Comment on above: Performed By: #### 2 72347 #### [place] [address] ALK PHOS 79 U/L Normal 46 - 116 [facility] Comment on above: Performed By: #### 2 73166 #### [place] [address] ALT [Catalytic activity/Vol] 31 U/L Normal 16 - 63 U/L [facility].; [facility], [facility]. Comment on above: Performed By: #### 2 07633 #### [place] [address] Anion gap [Moles/Vol] 16 mmol/L Normal 10 - 20 mmol/L [facility], [facility].; [facility] Comment on above: Performed By: #### 2 84473 #### [place] [address] AST [Catalytic activity/Vol] 16 U/L Normal 13 - 39 U/L [facility], [facility].; [facility], [employer]. Comment on above: Performed By: #### 2 40310 #### [place] [id number] B/C RATIO 26 ratio Normal 0 - 30 [facility] Comment on above: Performed By: #### 2 31508 #### [place] [id number] Bilirubin [Mass/Vol] 0.4 mg/dL Normal 0.2 - 1 .0 mg/dL [facility], [facility].; [facility], [employer]. Comment on above: Performed By: #### 2 16512 #### [place] [id number] Calcium [Mass/Vol] 9.8 mg/dL Normal 8.5 - 10. 1 mg/dL [facility], [facility].; [facility] Comment on above: Performed By: #### 2 88816 #### [facility],[address] [place] [address] Chloride [Moles/Vol] 100 mmol/L Normal 98 - 10 7 mmol/L [facility].; [facility] Comment on above: Performed By: #### 2 84586 #### [facility],[address] [place] [address] CMP with eGFR Normal [facility] Comment on above: Result Comment: COMP REHENSIVE METABOLIC PANEL Performed By: #### 2 65946 #### [address] [address] CO2 [Moles/Vol] 28.2 mmol/L Normal 21.0 - 32.0 mmol/L [facility].; [facility], [facility]. Comment on above: Performed By: #### 2 72204 #### [address] [address] Creatinine [Mass/Vol] 0.94 mg/dL Normal 0.55 - 1.02 mg/dL [facility].; [facility], [facility]. Comment on above: Performed By: #### 2 12892 #### [facility],[address] [place] [address] eGFR 59 ML/MINUTE Low 60 - 999 [facility] Comment on above: Performed By: #### 2 93882 #### [address] [address] GFR/1.73 sq M.predicted among non-blacks MDRD (S/P/Bld) [Vol rate/Area] mL/min/{1.73_m2} Normal 60 - 999 [facility] Comment on above: Result Comment: ACCO RDING TO THE NATIONAL KIDNEY DISEASE EDUCATION PROGRAM(NKDE), A NORMAL eGFR IS A VALUE GREATER THAN OR EQUAL TO 60 ML/MIN/1.73 SQ METERS. CHRONIC KIDNEY DISEASE: <60mL/MIN/1.73 SQ METERS KIDNEY FAILURE: <15mL/MIN/1.73 SQ METERS THIS TEST SHOULD ONLY BE USED FOR PATIENTS 18 YEARS OF AGE AND OLDER. Performed By: #### 2 78889 #### [place] [address] Globulin (S) [Mass/Vol] 3.0 g/dL Normal 1.5 - 3.8 g/dL [facility].; [facility], [facility]. Comment on above: Performed By: #### 2 38971 #### [place] [address] Glucose [Mass/Vol] 121 mg/dL Abnormal 74 - 106 mg/dL [facility], [facility].; [facility], [facility]. Comment on above: Performed By: #### 2 05280 #### [place] [address] Potassium [Moles/Vol] 4.1 mmol/L Normal 3.5 - 5.1 mmol/L [facility], [facility].; [facility], [facility]. Comment on above: Performed By: #### 2 58005 #### [place] [address] Protein [Mass/Vol] 7.2 g/dL Normal 6.4 - 8.2 g/dL [facility], [facility].; [facility], [facility]. Comment on above: Performed By: #### 2 04568 #### [place] [id number] Sodium [Moles/Vol] 140 mmol/L Normal 136 - 145 mmol/L [facility], [facility].; [facility] Comment on above: Performed By: #### 2 04446 #### [place] [id number] Urea nitrogen [Mass/Vol] 24 mg/dL Abnormal 7 - 18 mg/dL [facility], [facility].; [facility], [facility]. Comment on above: Performed By: #### 2 27727 #### [place] [address] HEMOGLOBIN A1C (POM)on 03-17 Glucose [Mass/Vol] 182.9 mg/dL High 0.0 - 0.0 [facility] Comment on above: Result Comment: BLDo HEMOGLOBIN A1C REFERENCE RANGESBLDo Suggested Diagnosis HbA1c(%) HbA1C (mmol/mol Diabetic >/=6.5 >/=48 Prediabetes 5.7 - 6.4 39 - 47 Normal <5.7 <39 Performed By: #### 2 11591 #### [place] [address] HbA1c (Bld) [Mass fraction] 8.0 % Abnormal 0.0 - 6.5 % [facility], [facility].; [facility] Comment on above: Performed By: #### 2 62706 #### [place] [address] LIPID PROFILEon 03-17-2024 Cholesterol [Mass/Vol] 189 mg/dL Normal 0 - 240 mg/dL [facility] Comment on above: Performed By: #### 2 72094 #### [place] [id number] Cholesterol in HDL [Mass/Vol] 57 mg/dL Normal 40 - 60 [facility] Comment on above: Performed By: #### 2 91824 #### [address] [address] Cholesterol in LDL [Mass/Vol] 107 mg/dL Normal 0 - 129 mg/dL [facility] Comment on above: Performed By: #### 2 47936 #### [address] [address] Cholesterol.total/Cho lesterol in HDL [Mass ratio] 3.3 {ratio} Normal 0.0 - 5.0 [facility] Comment on above: Performed By: #### 2 25396 #### [facility],[address] [place] [address] Lipid 1996 panel Normal [facility] Comment on above: Result Comment: LIPI D PROFILE Performed By: #### 2 76066 #### [facility],[address] [place] [address] Triglyceride [Mass/Vol] 127 mg/dL Normal 0 - 150 mg/dL [facility], [facility].; [employer], [employer]. Comment on above: Performed By: #### 2 52131 #### [facility],[address] [place] [address] Laboratory - Chemistry and C hemistry - challengeon 03-17-2024 Albumin [Mass/Vol] 1.4 g/dL Normal 0.9 - 1.6 [facility], [facility].; [employer] ALP [Catalytic activity/Vol] 79 U/L Normal 46 - 116 U/L [facility], [facility].; [employer] Average glucose Estimated from glycated hemoglobin (Bld) [Mass/Vol] 182.9 mg/dL Abnormal 0.0 - 0.0 mg/dL [facility], [facility].; [employer] Cholesterol in HDL [Mass or moles/Vol] 57 mg/dL Normal 40 - 60 mg/dL [facility], [facility].; [employer] Comprehensive metabolic 2000 panel CMP with eGFR Normal [facility], [facility].; [facility] [facility] GFR/1.73 sq M.predicted among blacks MDRD (S/P/Bld) [Vol rate/Area] mL/min/{1.73_m2} Normal 60 - 999 {ML/MINUTE} [facility] [employer] GFR/1.73 sq M.predicted MDRD (S/P/Bld) [Vol rate/Area] 59 {ML/MINUTE} Abnormal 60 - 999 {ML/MINUTE} [facility] [employer] Lipid 1996 panel LIPID PROFILE Normal [facility], [facility].; [facility] [facility], [facility] Urea nitrogen/Creatinine [Mass ratio] 26 {ratio} Normal 0 - 30 {ratio} [employer] Laboratory - Hematology and Cell countson 03-17-2024 Basophils (Bld) [#/Vol] 0.01 {3/UL} Normal 0.00 - 0.10 {3/UL} [employer].; [employer], [employer]. CBC W Auto Differential panel (Bld) CBC + DIFF Normal [employer].; [employer] Eosinophils (Bld) [#/Vol] 0.46 {3/UL} Normal 0.00 - 0.50 {3/UL} [employer], [employer]. Lymphocytes (Bld) [#/Vol] 1.68 {3/UL} Normal 0.80 - 2.80 {3/UL} [employer], [employer].; [employer], [employer]. MCHC (RBC) [Mass/Vol] 34 {X10_3} Normal 32 - 3 6 {X10_3} [employer].; [employer] Monocytes (Bld) [#/Vol] 0.33 {3/UL} Normal 0.20 - 1.00 {3/UL} [employer], [employer].; [employer], [employer]. Monocytes/100 WBC (Bld) 4.6 % Normal 0.0 - 10.0 % [employer].; [employer] Neutrophils (Bld) [#/Vol] 4.68 {3/UL} Normal 1.50 - 7.10 {3/UL} [employer] Platelets (Bld) [#/Vol] 361 {3/UL} Normal 150 - 450 {3/UL} [employer], [employer].; [employer], [employer]. RBC (Bld) [#/Vol] 4.55 {6/UL} Normal 4.10 - 5.3 0 {6/UL} [employer], [employer].; [employer] WBC (Bld) [#/Vol] 7.2 {3/UL} Normal 4.5 - 10.8 {3/UL} [employer], [employer]. No Panel Informationon 03-17 AGE 68 {years} Normal [facility]; [facility] Laboratory - Hematology and Cell countson 10-29-2023 HbA1c (Bld) [Mass fraction] 7.2 % Abnormal 4.6 - 7.1 % [facility]; [facility] Laboratory - Chemistry and C hemistry - challengeon 03-27-2023 Creatinine (U) [Mass/Vol] 42 mg/dL Normal 20 - 275 mg/dL [facility]; [facility] No Panel Informationon 03-27 ALBUMIN, URINE 0.2 mg/dL Normal [facility]; [facility] ALBUMIN/CREATININE RATIO, RANDOM URINE 5 Normal [facility]; [facility] Laboratory - Chemistry and C hemistry - challengeon 03-18-2023 Albumin [Mass/Vol] 4.5 g/dL Normal 3.6 - 5.1 g/dL [facility]; [facility], [facility] Albumin/Globulin [Mass ratio] 2.0 {ratio} Normal 1.0 - 2.5 [facility]; [facility]. ALP [Catalytic activity/Vol] 65 U/L Normal 37 - 153 U/L [facility]; [facility], [facility]. ALT [Catalytic activity/Vol] 17 U/L Normal 6 - 29 U/L [facility].; [facility], [facility]. AST [Catalytic activity/Vol] 13 U/L Normal 10 - 35 U/L [facility].; [facility]. Bilirubin [Mass/Vol] 0.6 mg/dL Normal 0.2 - 1 .2 mg/dL [facility] [facility]; [facility], [facility]. Calcium [Mass/Vol] 9.6 mg/dL Normal 8.6 - 10. 4 mg/dL [facility]; [facility], [facility] Chloride [Moles/Vol] 98 mmol/L Normal 98 - 11 0 mmol/L [facility] Cholesterol [Mass/Vol] 243 mg/dL Abnormal [facility], [facility]. Cholesterol in HDL [Mass/Vol] 51 mg/dL Normal [facility], [facility]. Cholesterol in LDL [Mass/Vol] 162 mg/dL Abnormal [facility], [facility]. CO2 [Moles/Vol] 29 mmol/L Normal 20 - 32 mmol/L [facility], [facility] Creatinine [Mass/Vol] 0.92 mg/dL Normal 0.50 - 1.05 mg/dL [facility], [facility].; [facility], [facility]. GFR/1.73 sq M.predicted among non-blacks MDRD (S/P/Bld) [Vol rate/Area] 69 mL/min/{1.73_m2} Normal [facility], [facility].; [facility], [facility]. Glucose [Mass/Vol] 138 mg/dL Abnormal 65 - 99 mg/dL [facility].; [facility], [facility]. Potassium [Moles/Vol] 4.1 mmol/L Normal 3.5 - 5.3 mmol/L [facility], [facility]. Protein [Mass/Vol] 6.8 g/dL Normal 6.1 - 8.1 g/dL [facility].; [facility], [facility]. Sodium [Moles/Vol] 135 mmol/L Normal 135 - 146 mmol/L [facility], [facility].; [facility], [facility]. Triglyceride [Mass/Vol] 155 mg/dL Abnormal [facility], [facility]. Urea nitrogen [Mass/Vol] 18 mg/dL Normal 7 - 25 mg/dL [facility], [facility].; [facility], [facility]. Laboratory - Hematology and Cell countson 03-18-2023 Basophils (Bld) [#/Vol] 0.021 10*3/uL Normal 0 - 200 {cells/uL} [facility], [facility].; [facility] Basophils/100 WBC (Bld) 0.3 % Normal [facility] Eosinophils (Bld) [#/Vol] 0.327 10*3/uL Normal 15 - 500 {cells/uL} [facility].; [facility] Eosinophils/100 WBC (Bld) 4.6 % Normal [facility], [facility] Erythrocyte distribution width (RBC) [Ratio] 12.2 % Normal 11.0 - 15.0 % [facility], [facility].; [facility], [facility] HbA1c (Bld) [Mass fraction] 7.5 % Abnormal [facility], [facility] Hematocrit (Bld) [Volume fraction] 40.2 % Normal 35.0 - 45.0 % [facility], [facility].; [facility], [facility] Hemoglobin (Bld) [Mass/Vol] 13.5 g/dL Normal 11.7 - 15.5 g/dL [facility].; [facility], [facility] Lymphocytes (Bld) [#/Vol] 1.434 10*3/uL Normal 850 - 3900 {cells/uL} [facility].; [facility], [facility] Lymphocytes/100 WBC (Bld) 20.2 % Normal [facility].; [facility], [facility] MCH (RBC) [Entitic mass] 29.1 pg Normal 27.0 - 33.0 pg [facility].; [facility], [facility]. MCHC (RBC) [Mass/Vol] 33.6 g/dL Normal 32.0 - 36.0 g/dL [facility], [facility].; [facility], [facility]. MCV (RBC) [Entitic vol] 86.6 fL Normal 80.0 - 100.0 fL [facility].; [facility], [facility]. Monocytes (Bld) [#/Vol] 0.639 10*3/uL Normal 200 - 950 {cells/uL} [facility].; [facility], [facility] Monocytes/100 WBC (Bld) 9.0 % Normal [facility], [facility].; [facility], [facility]. Neutrophils (Bld) [#/Vol] 4.679 10*3/uL Normal 1500 - 7800 {cells/uL} [facility].; [facility]. Neutrophils/100 WBC (Bld) 65.9 % Normal [facility]; [facility] Platelet mean volume (Bld) [Entitic vol] 10.3 fL Normal 7.5 - 12.5 fL [facility].; [place] [employer], [facility] Platelets (Bld) [#/Vol] 358 10*3/uL Normal 140 - 400 [facility]; [facility] RBC (Bld) [#/Vol] 4.64 10*6/uL Normal 3.80 - 5.1 0 {Million/uL} [facility].; [facility] WBC (Bld) [#/Vol] 7.1 10*3/uL Normal 3.8 - 10.[address] [facility].; [place] [employer] [facility] No Panel Informationon 03-18 BUN/CREATININE RATIO SEE NOTE: Normal [facility].; [facility]. CHOL/HDLC RATIO 4.8 Normal [facility]; [facility] GLOBULIN 2.3 Normal 1.9 - 3.7 [facility]; [facility] NON HDL CHOLESTEROL 192 Abnormal [facility]; [facility]. Laboratory - Hematology and Cell countson 10-23-2022 HbA1c (Bld) [Mass fraction] 7.0 % Normal 4.6 - 7.1 % [facility].; [place] [facility]. Laboratory - Hematology and Cell countson 07-03-2022 HbA1c (Bld) [Mass fraction] 6.9 % Normal 4.6 - 7.1 % [facility].; [place] [email or web address] Laboratory - Chemistry and C hemistry - challengeon 03-27-2022 Albumin/Creatinine DL <= 20 mg/L (U) [Mass ratio] mg/g Normal [facility].; [place] [employer], [employer]. Creatinine (U) [Mass/Vol] 200 mg/dL Normal [facility].; [place] [email or web address]. Laboratory - Urinalysison Protein Ql (U) 80mg/L Normal [facility].; [facility], [facility] Laboratory - Chemistry and C hemistry - challengeon 03-21-2022 Albumin [Mass/Vol] 4.6 g/dL Normal 3.6 - 5.1 g/dL [facility]; [facility] Albumin/Globulin [Mass ratio] 1.9 {ratio} Normal 1.0 - 2.5 [facility]; [facility] ALP [Catalytic activity/Vol] 72 U/L Normal 37 - 153 U/L [facility], [facility]. ALT [Catalytic activity/Vol] 18 U/L Normal 6 - 29 U/L [facility]; [facility], [facility]. AST [Catalytic activity/Vol] 13 U/L Normal 10 - 35 U/L [facility]; [facility] Bilirubin [Mass/Vol] 0.6 mg/dL Normal 0.2 - 1 .2 mg/dL [facility], [facility]. Calcium [Mass/Vol] 10.1 mg/dL Normal 8.6 - 10. 4 mg/dL [facility], [facility] Chloride [Moles/Vol] 95 mmol/L Abnormal 98 - 11 0 mmol/L [facility], [facility] Cholesterol [Mass/Vol] 170 mg/dL Normal [facility].; [facility], [facility]. Cholesterol in HDL [Mass/Vol] 52 mg/dL Normal [facility].; [facility], [facility]. Cholesterol in LDL [Mass/Vol] 92 mg/dL Normal [facility].; [facility], [facility]. CO2 [Moles/Vol] 30 mmol/L Normal 20 - 32 mmol/L [facility].; [facility], [facility]. Creatinine [Mass/Vol] 0.88 mg/dL Normal 0.50 - 1.05 mg/dL [facility].; [facility]. GFR/1.73 sq M.predicted among non-blacks MDRD (S/P/Bld) [Vol rate/Area] 73 mL/min/{1.73_m2} Normal [facility]; [facility], [facility] Glucose [Mass/Vol] 167 mg/dL Abnormal 65 - 99 mg/dL [facility].; [facility], [facility] Potassium [Moles/Vol] 4.1 mmol/L Normal 3.5 - 5.3 mmol/L [facility]; [facility], [facility] Protein [Mass/Vol] 7.0 g/dL Normal 6.1 - 8.1 g/dL [facility]; [facility], [facility] Sodium [Moles/Vol] 133 mmol/L Abnormal 135 - 146 mmol/L [facility]; [facility], [facility] Triglyceride [Mass/Vol] 162 mg/dL Abnormal [facility]; [facility], [facility] Urea nitrogen [Mass/Vol] 17 mg/dL Normal 7 - 25 mg/dL [facility]; [facility], [facility] Laboratory - Hematology and Cell countson 03-21-2022 HbA1c (Bld) [Mass fraction] 9.3 % Abnormal [facility]; [facility], [facility] No Panel Informationon 03-21 BUN/CREATININE RATIO NOT APPLICABLE Normal 6 - 22 [facility]; [facility], [facility] CHOL/HDLC RATIO 3.3 Normal [facility]; [facility], [facility] GLOBULIN 2.4 Normal 1.9 - 3.7 [facility]; [facility], [facility] NON HDL CHOLESTEROL [address] [facility]; [facility], [facility] Laboratory - Chemistry and C hemistry - challengeon 11-20-2021 Albumin [Mass/Vol] 4.4 g/dL Normal 3.6 - 5.1 g/dL [facility].; [facility], [facility] Albumin/Globulin [Mass ratio] 1.7 {ratio} Normal 1.0 - 2.5 [facility]; [facility], [facility] ALP [Catalytic activity/Vol] 61 U/L Normal 37 - 153 U/L [facility], [facility].; [facility], [facility]. ALT [Catalytic activity/Vol] 23 U/L Normal 6 - 29 U/L [facility], [facility]. AST [Catalytic activity/Vol] 15 U/L Normal 10 - 35 U/L [facility], [facility].; [facility], [facility]. Bilirubin [Mass/Vol] 0.4 mg/dL Normal 0.2 - 1 .2 mg/dL [facility], [facility].; [facility], [facility]. Calcium [Mass/Vol] 9.4 mg/dL Normal 8.6 - 10. 4 mg/dL [facility], [facility].; [facility], [facility]. Chloride [Moles/Vol] 100 mmol/L Normal 98 - 11 0 mmol/L [facility], [facility].; [facility], [facility]. CO2 [Moles/Vol] 22 mmol/L Normal 20 - 32 mmol/L [facility], [facility].; [facility], [facility]. Creatinine [Mass/Vol] 0.89 mg/dL Normal 0.50 - 1.05 mg/dL [facility], [facility].; [facility], [facility]. GFR/1.73 sq M.predicted among non-blacks MDRD (S/P/Bld) [Vol rate/Area] 72 mL/min/{1.73_m2} Normal [facility], [facility].; [facility], [facility]. Glucose [Mass/Vol] 239 mg/dL Abnormal 65 - 99 mg/dL [facility].; [facility], [facility]. Potassium [Moles/Vol] 3.8 mmol/L Normal 3.5 - 5.3 mmol/L [facility], [facility].; [facility], [facility]. Protein [Mass/Vol] 7.0 g/dL Normal 6.1 - 8.1 g/dL [facility].; [facility] Sodium [Moles/Vol] 137 mmol/L Normal 135 - 146 mmol/L [facility], [facility].; [facility], [facility]. Urea nitrogen [Mass/Vol] 16 mg/dL Normal 7 - 25 mg/dL [facility] City[facility].; [employer] Laboratory - Hematology and Cell countson 11-20-2021 Basophils (Bld) [#/Vol] 0.013 10*3/uL Normal 0 - 200 {cells/uL} [facility].; [place] [email or web address] Basophils/100 WBC (Bld) 0.2 % Normal [facility].; [place] [employer], [employer] Eosinophils (Bld) [#/Vol] 0.032 10*3/uL Normal 15 - 500 {cells/uL} [facility].; [place] [email or web address] Eosinophils/100 WBC (Bld) 0.5 % Normal [facility].; [employer] Erythrocyte distribution width (RBC) [Ratio] 12.8 % Normal 11.0 - 15.0 % [facility].; [employer]. HbA1c (Bld) [Mass fraction] 8.8 % Abnormal 4.6 - 7.1 % [facility].; [employer]. Hematocrit (Bld) [Volume fraction] 39.1 % Normal 35.0 - 45.0 % [facility].; [employer], [employer]. Hemoglobin (Bld) [Mass/Vol] 13.4 g/dL Normal 11.7 - 15.5 g/dL [facility].; [employer], [employer]. Lymphocytes (Bld) [#/Vol] 1.229 10*3/uL Normal 850 - 3900 {cells/uL} [facility].; [employer]. Lymphocytes/100 WBC (Bld) 19.2 % Normal [facility] [employer] [facility].; [employer]. MCH (RBC) [Entitic mass] 29.9 pg Normal 27.0 - 33.0 pg [place] [email or web address].; [employer], [employer]. MCHC (RBC) [Mass/Vol] 34.3 g/dL Normal 32.0 - 36.0 g/dL [place] [employer], [facility].; [employer], [employer]. MCV (RBC) [Entitic vol] 87.3 fL Normal 80.0 - 100.[address] [facility].; [employer]. Monocytes (Bld) [#/Vol] 0.563 10*3/uL Normal 200 - 950 {cells/uL} [facility].; [facility]. Monocytes/100 WBC (Bld) 8.8 % Normal [facility].; [place] [employer], [employer]. Neutrophils (Bld) [#/Vol] 4.563 10*3/uL Normal 1500 - 7800 {cells/uL} [facility].; [place] [facility] [facility]. Neutrophils/100 WBC (Bld) 71.3 % Normal [facility].; [place] [employer], [employer]. Platelet mean volume (Bld) [Entitic vol] 9.8 fL Normal 7.5 - 12.5 fL [facility].; [facility], [facility]. Platelets (Bld) [#/Vol] 322 10*3/uL Normal 140 - [address] [facility] [facility].; [place] [employer], [employer]. RBC (Bld) [#/Vol] 4.48 10*6/uL Normal 3.80 - 5.1 0 {Million/uL} [facility].; [place] [employer], [facility]. WBC (Bld) [#/Vol] 6.4 10*3/uL Normal 3.8 - 10.[address] [facility] [facility].; [place] [employer], [facility]. No Panel Informationon 11-20 BUN/CREATININE RATIO NOT APPLICABLE Normal 6 - [address] [facility].; [place] [facility]. GLOBULIN 2.6 Normal 1.9 - 3.[address] [facility] [address] [facility].; [place] [employer], [facility]. Laboratory - Chemistry and C hemistry - challengeon 03-22-2021 Albumin/Creatinine DL <= 20 mg/L (U) [Mass ratio] mg/g Normal [facility].; [place] [employer], [employer]. Creatinine (U) [Mass/Vol] 200 mg/dL Normal [facility].; [place] [employer], [employer]. Laboratory - Urinalysison Protein Ql (U) 10 mg/dL Normal [facility].; [place] [employer] Laboratory - Chemistry and C hemistry - challengeon 03-15-2021 Albumin [Mass/Vol] 4.5 g/dL Normal 3.6 - 5.1 g/dL [facility]; [facility], [facility] Albumin/Globulin [Mass ratio] 1.8 {ratio} Normal 1.0 - 2.5 [facility]; [facility], [facility] ALP [Catalytic activity/Vol] 59 U/L Normal 37 - 153 U/L [facility], [facility] ALT [Catalytic activity/Vol] 18 U/L Normal 6 - 29 U/L [facility]; [facility], [facility] AST [Catalytic activity/Vol] 15 U/L Normal 10 - 35 U/L [facility]; [facility], [facility] Bilirubin [Mass/Vol] 0.7 mg/dL Normal 0.2 - 1 .2 mg/dL [facility]; [facility], [facility] Calcium [Mass/Vol] 9.2 mg/dL Normal 8.6 - 10. 4 mg/dL [facility], [facility] Chloride [Moles/Vol] 94 mmol/L Abnormal 98 - 11 0 mmol/L [facility]; [facility], [facility]. Cholesterol [Mass/Vol] 164 mg/dL Normal [facility]; [facility], [facility]. Cholesterol in HDL [Mass/Vol] 51 mg/dL Normal [facility], [facility] Cholesterol in LDL [Mass/Vol] 89 mg/dL Normal [facility].; [facility], [facility]. CO2 [Moles/Vol] 28 mmol/L Normal 20 - 32 mmol/L [facility], [facility] Creatinine [Mass/Vol] 0.85 mg/dL Normal 0.50 - 0.99 mg/dL [facility], [facility].; [facility], [facility]. GFR/1.73 sq M.predicted among blacks MDRD (S/P/Bld) [Vol rate/Area] 84 mL/min/{1.73_m2} Normal [facility].; [facility] Glucose [Mass/Vol] 145 mg/dL Abnormal 65 - 99 mg/dL [facility].; [facility], [facility] Potassium [Moles/Vol] 4.0 mmol/L Normal 3.5 - 5.3 mmol/L [facility], [facility] Protein [Mass/Vol] 7.0 g/dL Normal 6.1 - 8.1 g/dL [facility]; [facility], [facility] Sodium [Moles/Vol] 133 mmol/L Abnormal 135 - 146 mmol/L [facility].; [facility], [facility] Triglyceride [Mass/Vol] 142 mg/dL Normal [facility]; [facility], [facility] Urea nitrogen [Mass/Vol] 16 mg/dL Normal 7 - 25 mg/dL [facility]; [facility], [facility] Laboratory - Hematology and Cell countson 03-15-2021 Basophils (Bld) [#/Vol] 0.01 10*3/uL Normal 0 - 200 {cells/uL} [facility], [facility] Basophils/100 WBC (Bld) 0.1 % Normal [facility]; [facility], [facility] Eosinophils (Bld) [#/Vol] 0.109 10*3/uL Normal 15 - 500 {cells/uL} [facility], [facility].; [facility], [facility] Eosinophils/100 WBC (Bld) 1.1 % Normal [facility].; [facility], [facility] Erythrocyte distribution width (RBC) [Ratio] 12.3 % Normal 11.0 - 15.0 % [facility], [facility] HbA1c (Bld) [Mass fraction] 7.3 % Abnormal [facility].; [facility], [facility] Hematocrit (Bld) [Volume fraction] 41.8 % Normal 35.0 - 45.0 % [facility], [facility].; [facility], [facility] Hemoglobin (Bld) [Mass/Vol] 13.9 g/dL Normal 11.7 - 15.5 g/dL [facility].; [facility] Lymphocytes (Bld) [#/Vol] 1.683 10*3/uL Normal 850 - 3900 {cells/uL} [facility].; [facility] [employer], [facility]. Lymphocytes/100 WBC (Bld) 17.0 % Normal [facility].; [employer], [employer]. MCH (RBC) [Entitic mass] 29.6 pg Normal 27.0 - 33.0 pg [facility], [facility].; [employer], [facility]. MCHC (RBC) [Mass/Vol] 33.3 g/dL Normal 32.0 - 36.0 g/dL [facility], [facility].; [employer], [facility]. MCV (RBC) [Entitic vol] 88.9 fL Normal 80.0 - 100.0 fL [facility], [facility].; [employer], [facility]. Monocytes (Bld) [#/Vol] 0.663 10*3/uL Normal 200 - 950 {cells/uL} [facility].; [employer] Monocytes/100 WBC (Bld) 6.7 % Normal [facility].; [employer], [facility]. Neutrophils (Bld) [#/Vol] 7.435 10*3/uL Normal 1500 - 7800 {cells/uL} [facility] [facility].; [employer] Neutrophils/100 WBC (Bld) 75.1 % Normal [facility].; [employer] Platelet mean volume (Bld) [Entitic vol] 10.7 fL Normal 7.5 - 12.5 fL [facility].; [employer] Platelets (Bld) [#/Vol] 367 10*3/uL Normal 140 - [address] [facility].; [employer] RBC (Bld) [#/Vol] 4.70 10*6/uL Normal 3.80 - 5.1 0 {Million/uL} [place] [employer], [facility].; [employer] WBC (Bld) [#/Vol] 9.9 10*3/uL Normal 3.8 - 10.8 [place] [email or web address], [employer]. No Panel Informationon 03-15 BUN/CREATININE RATIO NOT APPLICABLE Normal 6 - 22 [facility]; [facility] CHOL/HDLC RATIO 3.2 Normal [facility]; [facility] eGFR NON-AFR. ANGUILLAN 72 Normal [facility]; [facility] GLOBULIN 2.5 Normal 1.9 - 3.7 [facility]; [facility] NON HDL CHOLESTEROL [address] [facility]; [facility] TSH W/REFLEX TO FT4 1.76 {mIU/L} Normal 0.40 - 4 .50 {mIU/L} [facility] [facility] - Hematology and Cell countson 05-08-2020 HbA1c (Bld) [Mass fraction] 6.4 % Normal 4.6 - 7.1 % [facility]; [facility] - Chemistry and C hemistry - challengeon 10-12-2019 Albumin [Mass/Vol] 4.7 g/dL Normal 3.6 - 5.1 g/dL [facility]; [facility], [facility] Albumin/Globulin [Mass ratio] 1.9 {ratio} Normal 1.0 - 2.5 [facility] ALP [Catalytic activity/Vol] 70 U/L Normal 37 - 153 U/L [facility] ALT [Catalytic activity/Vol] 19 U/L Normal 6 - 29 U/L [facility]; [facility], [facility] AST [Catalytic activity/Vol] 12 U/L Normal 10 - 35 U/L [facility]; [facility] Bilirubin [Mass/Vol] 0.5 mg/dL Normal 0.2 - 1 .2 mg/dL [facility]; [facility], [facility] Calcium [Mass/Vol] 9.9 mg/dL Normal 8.6 - 10. 4 mg/dL [facility]; [facility] Chloride [Moles/Vol] 96 mmol/L Abnormal 98 - 11 0 mmol/L [facility], [facility] Cholesterol [Mass/Vol] 151 mg/dL Normal [facility]; [facility], [facility] Cholesterol in HDL [Mass/Vol] 50 mg/dL Normal [facility], [facility] Cholesterol in LDL [Mass/Vol] 79 mg/dL Normal [facility]; [facility], [facility] CO2 [Moles/Vol] 27 mmol/L Normal 20 - 32 mmol/L [facility], [facility] Creatinine [Mass/Vol] 0.77 mg/dL Normal 0.50 - 0.99 mg/dL [facility]; [facility], [facility] GFR/1.73 sq M.predicted among blacks MDRD (S/P/Bld) [Vol rate/Area] 95 mL/min/{1.73_m2} Normal [facility], [facility] Glucose [Mass/Vol] 141 mg/dL Abnormal 65 - 99 mg/dL [facility].; [facility], [facility] Potassium [Moles/Vol] 4.3 mmol/L Normal 3.5 - 5.3 mmol/L [facility]; [facility], [facility]. Protein [Mass/Vol] 7.2 g/dL Normal 6.1 - 8.1 g/dL [facility]; [facility], [facility] Sodium [Moles/Vol] 135 mmol/L Normal 135 - 146 mmol/L [facility], [facility].; [facility], [facility]. Triglyceride [Mass/Vol] 127 mg/dL Normal [facility], [facility] Urea nitrogen [Mass/Vol] 21 mg/dL Normal 7 - 25 mg/dL [facility]; [facility], [facility] Laboratory - Coagulationon 0 10-12-2019 INR Coag (PPP) [Relative time] 1.0 {INR} Normal [facility]; [facility], [facility] PT Coag (PPP) [Time] 10.3 s Normal 9.0 - 1 1.5 {sec} [facility] [employer] Laboratory - Hematology and Cell countson 10-12-2019 Basophils (Bld) [#/Vol] 0 10*3/uL Normal 0 - 200 {cells/uL} [facility] Anna Loz[facility].; [employer], [employer]. Basophils/100 WBC (Bld) 0.0 % Normal [facility].; [employer], [employer]. Eosinophils (Bld) [#/Vol] 0.508 10*3/uL Abnormal 15 - 500 {cells/uL} [facility] [employer] [facility].; [employer]. Eosinophils/100 WBC (Bld) 6.6 % Normal [email or web address].; [employer], [employer]. Erythrocyte distribution width (RBC) [Ratio] 12.5 % Normal 11.0 - 15.0 % [facility] [employer] [facility].; [employer], [employer]. HbA1c (Bld) [Mass fraction] 7.2 % Abnormal [facility].; [employer], [employer]. Hematocrit (Bld) [Volume fraction] 39.9 % Normal 35.0 - 45.0 % [email or web address].; [employer], [employer]. Hemoglobin (Bld) [Mass/Vol] 13.3 g/dL Normal 11.7 - 15.5 g/dL [facility].; [employer], [employer]. Lymphocytes (Bld) [#/Vol] 1.494 10*3/uL Normal 850 - 3900 {cells/uL} [email or web address].; [employer], [employer]. Lymphocytes/100 WBC (Bld) 19.4 % Normal [employer] [facility].; [employer], [employer]. MCH (RBC) [Entitic mass] 29.0 pg Normal 27.0 - 33.0 pg [email or web address].; [employer], [employer]. MCHC (RBC) [Mass/Vol] 33.3 g/dL Normal 32.0 - 36.0 g/dL [employer], [employer].; [employer], [employer]. MCV (RBC) [Entitic vol] 87.1 fL Normal 80.0 - 100.0 fL [email or web address].; [employer]. Monocytes (Bld) [#/Vol] 0.601 10*3/uL Normal 200 - 950 {cells/uL} [facility].; [facility] Monocytes/100 WBC (Bld) 7.8 % Normal [facility].; [facility]. Neutrophils (Bld) [#/Vol] 5.097 10*3/uL Normal 1500 - 7800 {cells/uL} [facility].; [employer] [facility] Neutrophils/100 WBC (Bld) 66.2 % Normal [facility].; [facility] [facility] Platelet mean volume (Bld) [Entitic vol] 9.6 fL Normal 7.5 - 12.5 fL [facility]; [facility] Platelets (Bld) [#/Vol] 340 10*3/uL Normal 140 - 400 [facility]; [facility] RBC (Bld) [#/Vol] 4.58 10*6/uL Normal 3.80 - 5.1 0 {Million/uL} [facility].; [facility]. WBC (Bld) [#/Vol] 7.7 10*3/uL Normal 3.8 - 10.[address] [facility].; [facility] No Panel Informationon 10-11 BUN/CREATININE RATIO NOT APPLICABLE Normal 6 - 22 [facility]; [facility] CHOL/HDLC RATIO 3.0 Normal [facility]; [facility] eGFR NON-AFR. ANGUILLAN 82 Normal [facility] City[facility]; [employer] [facility] GLOBULIN 2.5 Normal 1.9 - 3.7 [facility]; [facility] NON HDL CHOLESTEROL 101 Normal [facility]; [facility] PARTIAL THROMBOPLASTIN TIME, ACTIVATED 27 {sec} Normal 22 - 34 {sec} [facility].; [email or web address]. TSH W/REFLEX TO FT4 2.10 {mIU/L} Normal 0.40 - 4 .50 {mIU/L} [facility], [facility]. Laboratory - Chemistry and C hemistry - challengeon 07-02-2019 Albumin/Creatinine DL <= 20 mg/L (U) [Mass ratio] 30-300 mg/g Abnormal [facility], [facility].; [facility], [facility]. Creatinine (U) [Mass/Vol] 200 mg/dL Normal [facility], [facility]; [facility], [facility] Laboratory - Hematology and Cell countson 07-02-2019 HbA1c (Bld) [Mass fraction] 6.9 % Normal 4.6 - 7.1 % [facility]; [facility], [facility]. Laboratory - Urinalysison Protein Ql (U) 80 mg/dL Normal [facility]; [facility], [facility] Laboratory - Chemistry and C hemistry - challengeon 12-30-2018 Calcium [Mass/Vol] 9.9 mg/dL Normal 8.6 - 10. 4 mg/dL [facility], [facility].; [facility], [facility]. Chloride [Moles/Vol] 100 mmol/L Normal 98 - 11 0 mmol/L [facility], [facility]. CO2 [Moles/Vol] 29 mmol/L Normal 20 - 32 mmol/L [facility], [facility].; [facility], [facility]. Creatinine [Mass/Vol] 0.81 mg/dL Normal 0.50 - 0.99 mg/dL [facility], [facility].; [facility], [facility]. GFR/1.73 sq M.predicted among blacks MDRD (S/P/Bld) [Vol rate/Area] 90 {ML/MIN/1.73M2} Normal [facility], [facility].; [facility], [facility]. GFR/1.73 sq M.predicted MDRD (S/P/Bld) [Vol rate/Area] 78 {ML/MIN/1.73M2} Normal [facility], [facility].; [facility], Inc. Glucose [Mass/Vol] 144 mg/dL Abnormal 65 - 99 mg/dL [facility].; [facility], [facility]. Potassium [Moles/Vol] 3.9 mmol/L Normal 3.5 - 5.3 mmol/L [facility].; [employer]. Sodium [Moles/Vol] 138 mmol/L Normal 135 - 146 mmol/L [facility].; [email or web address]. Urea nitrogen [Mass/Vol] 14 mg/dL Normal 7 - 25 mg/dL [facility].; [employer]. Urea nitrogen/Creatinine [Mass ratio] 16.8 mg/mg Normal 6 - 22 [facility].; [employer]. Laboratory - Hematology and Cell countson 12-30-2018 HbA1c (Bld) [Mass fraction] 6.7 % Normal 4.6 - 7.1 % [email or web address].; [employer]. Laboratory - Hematology and Cell countson 09-30-2018 HbA1c (Bld) [Mass fraction] 9.7 % Abnormal 4.6 - 7.1 % [facility].; [employer]. Laboratory - Chemistry and C hemistry - challengeon 08-26-2018 Bilirubin Ql (U) Negative Normal [facility].; [employer]. Ketones Ql (U) Negative Normal [facility].; [employer]. pH (U) 6.5 [pH] Normal [email or web address].; [employer]. Specific gravity (U) [Rel density] 1.010 Normal [email or web address].; [employer]. Urobilinogen Qn (U) 0.2 mg/dL Normal [facility].; [employer]. Laboratory - Hematology and Cell countson 08-26-2018 Hemoglobin Ql (U) Negative Normal [email or web address].; [employer]. Laboratory - Specimen inform ationon 08-26-2018 Appearance (U) clear Normal [facility] [employer].; [employer]. Color (U) yellow Normal [employer].; [employer]. Laboratory - Urinalysison Glucose Test strip (U) [Mass/Vol] >1000 Abnormal [employer].; [employer]. Leukocyte esterase Test strip Ql (U) moderate Abnormal [facility].; [email or web address]. Nitrite Ql (U) Negative Normal [facility].; [email or web address]. Protein Ql (U) Negative Normal [facility].; [employer], [employer]. Laboratory - Chemistry and C hemistry - challengeon 06-30-2018 Albumin/Creatinine DL <= 20 mg/L (U) [Mass ratio] 30-300 mg/g Abnormal [facility].; [email or web address]. Cholesterol [Mass/Vol] Normal 0 - 200.0 mg/dL [facility].; [facility], [employer]. Cholesterol in HDL [Mass/Vol] 49 mg/dL Abnormal 30.0 - 40.0 mg/dL [facility].; [employer], [employer]. Cholesterol in LDL [Mass/Vol] 118 mg/dL Normal 50.0 - 130.0 mg/dL [facility].; [email or web address]. Cholesterol non HDL [Mass/Vol] 146 mg/dL Normal [facility].; [email or web address]. Cholesterol.total/Cho lesterol in HDL [Mass ratio] 2,4 Normal 0 - 5.0 [facility].; [email or web address]. Creatinine (U) [Mass/Vol] 300 mg/dL Abnormal [facility].; [employer], [employer]. Triglyceride [Mass/Vol] 143 mg/dL Normal 40 - 150 mg/dL [facility].; [email or web address]. Laboratory - Hematology and Cell countson 06-30-2018 HbA1c (Bld) [Mass fraction] 7.8 % Abnormal 4.6 - 7.1 % [facility].; [email or web address]. Laboratory - Urinalysison Protein Ql (U) 80 mg/dL Abnormal [facility].; [employer], [employer] Laboratory - Chemistry and C hemistry - challengeon 06-16-2018 Bilirubin Ql (U) large Abnormal [facility].; [email or web address]. Ketones Ql (U) 15 mg/dL Abnormal [employer].; [employer]. pH (U) 5.5 [pH] Normal [employer]; [employer]. Specific gravity (U) [Rel density] 1.020 Normal [employer].; [employer]. Urobilinogen Qn (U) 4 mg/dL Abnormal [email or web address].; [employer]. Laboratory - Hematology and Cell countson 06-16-2018 Hemoglobin Ql (U) large Abnormal [employer].; [employer]. Laboratory - Specimen inform ationon 06-16-2018 Appearance (U) cloudy Abnormal [employer]; [employer]. Color (U) Brown Abnormal [employer].; [employer]. Laboratory - Urinalysison Glucose Test strip (U) [Mass/Vol] Negative Normal [employer]; [employer]. Leukocyte esterase Test strip Ql (U) large Abnormal [employer].; [employer]. Nitrite Ql (U) Positive Abnormal [employer]; [employer]. Protein Ql (U) >=300 Normal [employer]; [employer]. A1Con 10-26-2017 Hemoglobin A1c/Hemoglobin.total mass fraction (Bld) 7.8 % High 4.0-6.0 [facility] ([place]) Comment on above: Performed By: #### C MP, GFR, LIPID, A1C ####[place] [id number] [place] [address] .GFRon 10-25-2017 eGFR (non-black) mL/min/{1.73_m2} Normal [facility] ([place]) Comment on above: Result Comment: GFR Population mean for , Non- Americans Ages 20-29 = 116 mL/min/1.73 sq.m. Ages 30-39 = 107 mL/min/1.73 sq.m. Ages 40-49 = 99 mL/min/1.73 sq.m. Ages 50-59 = 93 mL/min/1.73 sq.m. Ages 60-69 = 85 mL/min/1.73 sq.m. Ages 70+ = 75 mL/min/1.73 sq.m.Chronic Kidney Disease: Less than 60 mL/min/1.73 square metersEnd Stage Renal Disease: Less than 15 mL/min/1.73 square meters Performed By: #### C MP, GFR, LIPID, A1C ####[address] [address] CMPon 10-25-2017 Alanine aminotransferase (ALT) 27 U/L Normal 10-49 [facility] ([place]) Comment on above: Performed By: #### C MP, GFR, LIPID, A1C ####[place] [address] Albumin/Globulin Ratio 1.4 {ratio} Normal [facility] Comment on above: Performed By: #### C MP, GFR, LIPID, A1C ####[place] [address] Alk Phos 76 U/L Normal 38-126 [facility] ([place]) Comment on above: Performed By: #### C MP, GFR, LIPID, A1C ####[place] [address] Bili Total 0.4 mg/dL Normal 0.2-1.2 [facility] ([place]) Comment on above: Performed By: #### C MP, GFR, LIPID, A1C ####[place] [address] BUN/Creatinine Ratio 24.2 ratio High 10.0-22.0 [facility] ([place]) Comment on above: Performed By: #### C MP, GFR, LIPID, A1C ####[place] [address] Creatinine 0.66 mg/dL Normal 0.6 - 1.4 mg/dL [facility], [facility].; [facility]. Comment on above: Performed By: #### C MP, GFR, LIPID, A1C ####[place] [address] Globulin 3.0 G/dL Normal 1.5-3.8 [facility] ([place]) Comment on above: Performed By: #### C MP, GFR, LIPID, A1C ####[place] [address] Glucose mass conc 130 mg/dL Abnormal 75 - 105 mg/dL [facility].; [facility], [facility]. Comment on above: Performed By: #### C MP, GFR, LIPID, A1C ####[place] [address] Protein 7.2 G/dL Normal 6.4 - 8.2 g/dL [facility], [facility].; [facility], [facility]. Comment on above: Performed By: #### C MP, GFR, LIPID, A1C ####[place] [address] Albumin 4.2 G/dL Normal 3.5 - 5.0 g/dL [facility].; [facility], [facility]. Comment on above: Performed By: #### C MP, GFR, LIPID, A1C ####[place] [address] Aspartate aminotransferase (AST) 10 U/L Abnormal 15 - 37 U/L [facility], [facility]. Comment on above: Performed By: #### C MP, GFR, LIPID, A1C ####[place] [address] Calcium 9.8 mg/dL Normal 8.4 - 10.6 mg/dL [facility].; [facility], [facility]. Comment on above: Performed By: #### C MP, GFR, LIPID, A1C ####[place] [address] Chloride 100 mmol/L Normal 98 - 110 mmol/L [facility].; [facility], [facility]. Comment on above: Performed By: #### C MP, GFR, LIPID, A1C ####[place] [address] CO2 27 mmol/L Normal 22-32 [facility] ([place]) Comment on above: Performed By: #### C MP, GFR, LIPID, A1C ####[address] [address] Electrolyte Balance 12.0 mEq/L Normal 4.0-15.0 [facility] ([place]) Comment on above: Performed By: #### C MP, GFR, LIPID, A1C ####[address] [address] Potassium molar conc 4.2 mmol/L Normal 3.50 - 5.00 meq/L [facility] Comment on above: Performed By: #### C MP, GFR, LIPID, A1C ####[place] [address] Sodium 139 mmol/L Normal 136 - 145 mmol/L [facility] Comment on above: Performed By: #### C MP, GFR, LIPID, A1C ####[place] [address] Urea nitrogen 16.0 mg/dL Normal 7.0 - 20.0 mg/dL [facility]; [facility]. Comment on above: Performed By: #### C MP, GFR, LIPID, A1C ####[place] [address] LIPIDon 10-25-2017 Cholesterol 135 mg/dL Normal 50-199 [facility] ([place]) Comment on above: Result Comment: Chol esterol Reference Interval:Less than 200 [id number] Borderline high [id number] and above High risk Performed By: #### C MP, GFR, LIPID, A1C ####[address] [address] HDL Cholesterol 46 mg/dL Normal 40-59 [facility] ([place]) Comment on above: Result Comment: HDL Reference Interval:Less than 40 Low - high risk60 or above Optimal/lowers risk Performed By: #### C MP, GFR, LIPID, A1C ####[address] [address] LDL Cholesterol 62 mg/dL Normal 0-129 [facility] ([place]) Comment on above: Result Comment: LDL is a calculated result and requires a 12- hr fast.LDL Reference Interval:Less than 100 [id number] Near or above [id number] Borderline high [id number] High xqfy911 and above Very high risk Performed By: #### C MP, GFR, LIPID, A1C ####[facility] [place] [address] Triglyceride 135 mg/dL Normal 3-149 [facility] ([place]) Comment on above: Result Comment: Trig lyceride Reference Interval:Less than 150 [id number] Borderline high [id number] High spiv240 or higher Very high risk Performed By: #### C MP, GFR, LIPID, A1C ####[facility] [address] [place] [address] Laboratory - Chemistry and C hemistry - challengeon 10-25-2017 ALP [Catalytic activity/Vol] 76 U/L Normal 50 - 136 U/L [employer], [employer].; [employer] ALT [Catalytic activity/Vol] 27 mmol/L Normal 12 - 49 mmol/L [employer], [employer].; [employer] Bilirubin [Mass/Vol] 0.4 mg/dL Normal 0.3 - 1 .0 mg/dL [employer], [employer].; [employer] CO2 [Moles/Vol] 27 {neisha/L} Normal 22.0 - 32.0 {neisha/L} [employer], [employer].; [employer] Globulin (S) [Mass/Vol] 3.0 g/dL Normal 1.5 - 3.8 g/dL [employer], [employer].; [employer], [employer] Urea nitrogen/Creatinine [Mass ratio] 24.2 mg/mg Normal 0 - 30 [employer], [employer].; [employer], [employer] No Panel Informationon 10-25 GFR - Normal [employer] GFR2 - Normal [employer], [employer].; [employer], [employer] Vital Signs Date Time Vital Sign Value Performing Clinician Elisha ashley 12-16-2024 08:23-0400 Diastolic blood pressure 57 mm[Hg] Nini Jolly LPN [employer].; [employer] Comment on above: Patient Position: Sitting; Cuff Location : Left Arm; Cuff Size: Standard 12-16-2024 08:23-0400 Heart rate 53 /min Nini Jolly LPN [facility].; [employer]. Comment on above: Pattern: Regular 12-16-2024 08:23-0400 Systolic blood pressure 122 mm[Hg] Nini Jolly LPN [facility].; [employer]. Comment on above: Patient Position: Sitting; Cuff Location : Left Arm; Cuff Size: Standard 12-16-2024 08:23-0400 Diastolic blood pressure 57 mm[Hg] Nini Jolly LPN [facility].; [employer]. Comment on above: Patient Position: Sitting; Cuff Location : Left Arm; Cuff Size: Standard 12-16-2024 08:23-0400 Heart rate 53 /min Nini Jolly LPN [facility].; [employer]. Comment on above: Pattern: Regular 12-16-2024 08:23-0400 Systolic blood pressure 135 mm[Hg] Nini Jolly LPN [facility].; [employer]. Comment on above: Patient Position: Sitting; Cuff Location : Left Arm; Cuff Size: Standard 09-23-2024 16:01-0400 Body height 166.37 cm Salty Ramos MD Work Phone: [facility] [facility].; [employer]. 09-23-2024 16:01-0400 Body mass index (BMI) [Ratio] 30.48 kg/m2 Salty Ramos MD Work Phone: [facility].; [facility]. 09-23-2024 16:01-0400 Body surface area Derived from formula 1.93 m2 Salty Ramos MD Work Phone: [employer] [facility].; [employer]. 09-23-2024 16:01-0400 Body weight 84.37 kg Salty Ramos MD Work Phone: [employer].; [employer]. 09-23-2024 16:01-0400 Diastolic blood pressure 77 mm[Hg] Salty Ramos MD Work Phone: [facility] Center[facility]; [employer]. Comment on above: Patient Position: Sitting; Cuff Location : Left Arm; Cuff Size: Large 09-23-2024 16:01-0400 Heart rate 61 /min Salty Ramos MD Work Phone: [employer]; [employer]. Comment on above: Pattern: Regular 09-23-2024 16:01-0400 Systolic blood pressure 150 mm[Hg] Salty Ramos MD Work Phone: [employer]; [employer]. Comment on above: Patient Position: Sitting; Cuff Location : Left Arm; Cuff Size: Large 06-24-2024 15:52-0500 Body height 166.37 cm [facility] Work Phone: [employer]; [employer]. 06-24-2024 15:52-0500 Body mass index (BMI) [Ratio] 30.97 kg/m2 [facility] Work Phone: [employer]; [employer] 06-24-2024 15:52-0500 Body surface area Derived from formula 1.94 m2 [facility] Work Phone: [employer]; [employer]. 06-24-2024 15:52-0500 Body weight 85.73 kg [facility] Work Phone: [employer]; [employer]. 06-24-2024 15:52-0500 Diastolic blood pressure 69 mm[Hg] [facility] Work Phone: [employer]; [employer] Comment on above: Patient Position: Sitting; Cuff Location : Left Arm; Cuff Size: Thigh 06-24-2024 15:52-0500 Diastolic blood pressure 70 mm[Hg] Salty Raoms MD Work Phone: [employer]; [employer] Comment on above: Patient Position: Sitting; Cuff Location : Left Arm; Cuff Size: Thigh 06-24-2024 15:52-0500 Heart rate 80 /min Mellisa Adán MAIL DISTRIBUTOR Work Phone: [employer]; [employer] Comment on above: Pattern: Regular 06-24-2024 15:52-0500 Systolic blood pressure 178 mm[Hg] Mellisa Adán MAIL DISTRIBUTOR Work Phone: [employer]; [employer] Comment on above: Patient Position: Sitting; Cuff Location : Left Arm; Cuff Size: Thigh 06-24-2024 15:52-0500 Systolic blood pressure 137 mm[Hg] Salty Ramos MD Work Phone: [employer]; [employer]. Comment on above: Patient Position: Sitting; Cuff Location : Left Arm; Cuff Size: Thigh 03-25-2024 14:26-0500 Diastolic blood pressure 69 mm[Hg] Mellisa Adán MAIL DISTRIBUTOR Work Phone: [employer]; CX Comment on above: Patient Position: Sitting; Cuff Location : Left Arm; Cuff Size: Thigh 03-25-2024 14:26-0500 Systolic blood pressure 146 mm[Hg] Mellisa Adán MAIL DISTRIBUTOR Work Phone: [employer]; [employer]. Comment on above: Patient Position: Sitting; Cuff Location : Left Arm; Cuff Size: Thigh 03-25-2024 14:15-0500 Diastolic blood pressure 68 mm[Hg] Mellisa Adán MAIL DISTRIBUTOR Work Phone: [employer]; [employer]. Comment on above: Patient Position: Standing; Cuff Locatio n: Left Arm; Cuff Size: Large 03-25-2024 14:15-0500 Heart rate 74 /min Mellisa Adán MAIL DISTRIBUTOR Work Phone: [employer]; [employer]. Comment on above: Pattern: Regular 03-25-2024 14:15-0500 Systolic blood pressure 161 mm[Hg] Mellisa Adán MAIL DISTRIBUTOR Work Phone: [facility] [email or web address]. Comment on above: Patient Position: Standing; Cuff Locatio n: Left Arm; Cuff Size: Large 03-25-2024 14:14-0500 Body height 166.37 cm Mellisa Adán MAIL DISTRIBUTOR Work Phone: [facility] [email or web address]. 03-25-2024 14:14-0500 Body mass index (BMI) [Ratio] 32.45 kg/m2 Mellisa Adán MAIL DISTRIBUTOR Work Phone: [facility]; [email or web address]. 03-25-2024 14:14-0500 Body surface area Derived from formula 1.98 m2 Mellisa Antonioy MAIL DISTRIBUTOR Work Phone: [facility]; [email or web address]. 03-25-2024 14:14-0500 Body weight 89.81 kg Mellisamoises Antonioy MAIL DISTRIBUTOR Work Phone: [employer]; [email or web address]. 03-25-2024 14:14-0500 Diastolic blood pressure 75 mm[Hg] Mellisa Adán MAIL DISTRIBUTOR Work Phone: [employer] [facility]; [employer]. Comment on above: Patient Position: Sitting; Cuff Location : Left Arm; Cuff Size: Large 03-25-2024 14:14-0500 Heart rate 70 /min Mellisa Adán MAIL DISTRIBUTOR Work Phone: [employer] [facility]; [employer]. Comment on above: Pattern: Regular 03-25-2024 14:14-0500 Systolic blood pressure 152 mm[Hg] Mellisa Adán MAIL DISTRIBUTOR Work Phone: [employer]; [employer]. Comment on above: Patient Position: Sitting; Cuff Location : Left Arm; Cuff Size: Large 10-29-2023 16:04-0400 Body height 166.37 cm Mellisa Adán MAIL DISTRIBUTOR Work Phone: [employer]; [employer]. 10-29-2023 16:04-0400 Body mass index (BMI) [Ratio] 32.45 kg/m2 [facility] Work Phone: [employer]; [employer]. 10-29-2023 16:04-0400 Body surface area Derived from formula 1.98 m2 [facility] Work Phone: [employer]; [employer]. 10-29-2023 16:04-0400 Body weight 89.81 kg Mellisa Adán MAIL DISTRIBUTOR Work Phone: [employer]; [employer]. 10-29-2023 16:04-0400 Diastolic blood pressure 75 mm[Hg] [facility] Work Phone: [employer]; [employer]. Comment on above: Patient Position: Sitting; Cuff Location : Left Arm; Cuff Size: Large 10-29-2023 16:04-0400 Heart rate 80 /min Mellisa Adán MAIL DISTRIBUTOR Work Phone: [employer]; [employer]. Comment on above: Pattern: Regular 10-29-2023 16:04-0400 Systolic blood pressure 124 mm[Hg] Mellisa Adán MAIL DISTRIBUTOR Work Phone: [employer]; [employer]. Comment on above: Patient Position: Sitting; Cuff Location : Left Arm; Cuff Size: Large 03-27-2023 14:25-0500 Diastolic blood pressure 64 mm[Hg] Salty Ramos MD Work Phone: [employer]; [employer]. Comment on above: Patient Position: Standing; Cuff Locatio n: Left Arm; Cuff Size: Large 03-27-2023 14:25-0500 Systolic blood pressure 153 mm[Hg] Salty Ramos MD Work Phone: [employer]. Comment on above: Patient Position: Standing; Cuff Locatio n: Left Arm; Cuff Size: Large 03-27-2023 14:24-0500 Body height 166.37 cm Mellisa Adán MAIL DISTRIBUTOR Work Phone: [employer]; [employer]. 03-27-2023 14:24-0500 Body mass index (BMI) [Ratio] 31.46 kg/m2 [facility] Work Phone: [employer]; [employer]. 03-27-2023 14:24-0500 Body surface area Derived from formula 1.96 m2 [facility] Work Phone: [employer]; [employer]. 03-27-2023 14:24-0500 Body weight 87.09 kg [facility] Work Phone: [employer].; [employer]. 03-27-2023 14:24-0500 Diastolic blood pressure 75 mm[Hg] Mellisa Adán MAIL DISTRIBUTOR Work Phone: [employer]; [employer]. Comment on above: Patient Position: Sitting; Cuff Location : Left Arm; Cuff Size: Large 03-27-2023 14:24-0500 Heart rate 80 /min Mellisa Adán MAIL DISTRIBUTOR Work Phone: [employer]; [employer]. Comment on above: Pattern: Regular 03-27-2023 14:24-0500 Systolic blood pressure 165 mm[Hg] Mellisa Adán MAIL DISTRIBUTOR Work Phone: [employer]. Comment on above: Patient Position: Sitting; Cuff Location : Left Arm; Cuff Size: Large 10-23-2022 15:55-0400 Body height 166.37 cm Mellisa Adán MAIL DISTRIBUTOR Work Phone: [employer]; [employer]. 10-23-2022 15:55-0400 Body mass index (BMI) [Ratio] 31.79 kg/m2 Mellisa Adán MAIL DISTRIBUTOR Work Phone: [employer]; [employer]. 10-23-2022 15:55-0400 Body surface area Derived from formula 1.96 m2 Mellisa Antonioy MAIL DISTRIBUTOR Work Phone: [employer]; [employer]. 10-23-2022 15:55-0400 Body weight 88 kg Mellisa Antonioy MAIL DISTRIBUTOR Work Phone: [employer]; [employer]. 10-23-2022 15:55-0400 Diastolic blood pressure 72 mm[Hg] Mellisa Antonioy MAIL DISTRIBUTOR Work Phone: [employer]; [employer]. Comment on above: Patient Position: Sitting; Cuff Location : Left Arm; Cuff Size: Standard 10-23-2022 15:55-0400 Heart rate 66 /min Mellisa Antonioy MAIL DISTRIBUTOR Work Phone: [employer]; [employer]. Comment on above: Pattern: Regular 10-23-2022 15:55-0400 Systolic blood pressure 136 mm[Hg] Mellisa Antonioy MAIL DISTRIBUTOR Work Phone: [employer]; [employer]. Comment on above: Patient Position: Sitting; Cuff Location : Left Arm; Cuff Size: Standard 07-03-2022 15:55-0500 Body height 166.37 cm Mellisa Adán MAIL DISTRIBUTOR Work Phone: [employer]; [employer]. 07-03-2022 15:55-0500 Body mass index (BMI) [Ratio] 30.81 kg/m2 Mellisa Adán MAIL DISTRIBUTOR Work Phone: [employer]; [employer]. 07-03-2022 15:55-0500 Body surface area Derived from formula 1.94 m2 Mellisa Mccain MAIL DISTRIBUTOR Work Phone: [employer]; [employer]. 07-03-2022 15:55-0500 Body weight 85.28 kg Mellisa Mccain LPN Work Phone: [employer].; [employer]. 07-03-2022 15:55-0500 Diastolic blood pressure 78 mm[Hg] Mellisa Mccain MAIL DISTRIBUTOR Work Phone: [employer]; [employer]. Comment on above: Patient Position: Sitting; Cuff Location : Left Arm; Cuff Size: Standard 07-03-2022 15:55-0500 Heart rate 65 /min Mellisa Mccain MAIL DISTRIBUTOR Work Phone: [employer]; [employer]. Comment on above: Pattern: Regular 07-03-2022 15:55-0500 Systolic blood pressure 159 mm[Hg] Mellisa Mccain MAIL DISTRIBUTOR Work Phone: [employer]; [employer]. Comment on above: Patient Position: Sitting; Cuff Location : Left Arm; Cuff Size: Standard 03-27-2022 14:17-0500 Diastolic blood pressure 64 mm[Hg] Salty Ramos MD Work Phone: [employer]; [employer]. Comment on above: Patient Position: Sitting; Cuff Location : Left Arm; Cuff Size: Large 03-27-2022 14:17-0500 Systolic blood pressure 128 mm[Hg] Salty Ramos MD Work Phone: [employer]; [employer]. Comment on above: Patient Position: Sitting; Cuff Location : Left Arm; Cuff Size: Large 03-27-2022 14:17-0500 Body height 166.37 cm Mellisa Mccain MAIL DISTRIBUTOR Work Phone: [employer]; [employer]. 03-27-2022 14:17-0500 Body mass index (BMI) [Ratio] 32.45 kg/m2 Mellisa Mccain LPN Work Phone: [employer]; [employer]. 03-27-2022 14:17-0500 Body surface area Derived from formula 1.98 m2 Mellisa Mccain LPN Work Phone: [employer]; [email or web address]. 03-27-2022 14:17-0500 Body weight 89.81 kg Mellisa Mccain LPN Work Phone: [employer]; [employer]. 03-27-2022 14:17-0500 Diastolic blood pressure 71 mm[Hg] Mellisa Mccain LPN Work Phone: [employer]; [employer]. Comment on above: Patient Position: Sitting; Cuff Location : Left Arm; Cuff Size: Large 03-27-2022 14:17-0500 Systolic blood pressure 144 mm[Hg] Mellisa Mccain LPN Work Phone: [employer]; [employer]. Comment on above: Patient Position: Sitting; Cuff Location : Left Arm; Cuff Size: Large 12-19-2021 15:37-0400 Diastolic blood pressure 66 mm[Hg] Celeste Tommy [facility] [email or web address]. Comment on above: Patient Position: Sitting; Cuff Location : Left Arm; Cuff Size: Standard 12-19-2021 15:37-0400 Systolic blood pressure 131 mm[Hg] Celeste [facility]. Comment on above: Patient Position: Sitting; Cuff Location : Left Arm; Cuff Size: Standard 12-19-2021 15:29-0400 Body height 167.64 cm Celeste Sanders [facility] [employer]. 12-19-2021 15:29-0400 Body mass index (BMI) [Ratio] 31.63 kg/m2 Celeste Sanders [facility].; [employer]. 12-19-2021 15:29-0400 Body surface area Derived from formula 1.98 m2 Celeste Carren[facility] [employer]. 12-19-2021 15:[id number] Body weight 88.91 kg Celeste Carrenor [facility].; [employer]. 12-19-2021 15:29-0400 Diastolic blood pressure 68 mm[Hg] Celeste Carrenor [facility].; [employer]. Comment on above: Patient Position: Sitting; Cuff Location : Left Arm; Cuff Size: Standard 12-19-2021 15:29-0400 Heart rate 70 /min Celeste Carrenor [facility] [employer]. Comment on above: Pattern: Regular 12-19-2021 15:29-0400 Systolic blood pressure 171 mm[Hg] Celeste Carrenor [facility] [email or web address].; [employer]. Comment on above: Patient Position: Sitting; Cuff Location : Left Arm; Cuff Size: Standard 11-20-2021 10:21-0400 Diastolic blood pressure 72 mm[Hg] Celeste Carrenor [facility] [employer]. Comment on above: Patient Position: Sitting; Cuff Location : Right Arm; Cuff Size: Large 11-20-2021 10:21-0400 Heart rate 61 /min Celeste Carrenor [facility].; [employer]. Comment on above: Pattern: Regular 11-20-2021 10:21-0400 Systolic blood pressure 153 mm[Hg] Celeste Crarenor [facility] [email or web address].; [employer]. Comment on above: Patient Position: Sitting; Cuff Location : Right Arm; Cuff Size: Large 11-20-2021 10:160400 Body height 167.64 cm Celeste Carrenor [facility].; [employer]. 11-20-2021 10:16-0400 Body mass index (BMI) [Ratio] 31.63 kg/m2 Celeste [facility]renor [facility].; [employer]. 11-20-2021 10:160400 Body surface area Derived from formula 1.98 m2 Celeste Sanders [facility].; [employer] [facility]. 11-20-2021 10:16-0400 Body weight 88.91 kg Celeste Sanders [facility].; [employer]. 11-20-2021 10:16-0400 Diastolic blood pressure 83 mm[Hg] [facility] [employer]. Comment on above: Patient Position: Sitting; Cuff Location : Right Arm; Cuff Size: Large 11-20-2021 10:16-0400 Systolic blood pressure 174 mm[Hg] Celeste Sanders [facility] [email or web address]. Comment on above: Patient Position: Sitting; Cuff Location : Right Arm; Cuff Size: Large 05-07-2021 14:32-0500 Diastolic blood pressure 77 mm[Hg] Salty Ramos MD Work Phone: [employer]. Comment on above: Patient Position: Sitting; Cuff Location : Left Arm; Cuff Size: Standard 05-07-2021 14:32-0500 Heart rate 53 /min Salty Ramos MD Work Phone: [employer]; [employer]. Comment on above: Pattern: Regular 05-07-2021 14:32-0500 Systolic blood pressure 134 mm[Hg] Salty Ramos MD Work Phone: [employer]; [employer]. Comment on above: Patient Position: Sitting; Cuff Location : Left Arm; Cuff Size: Standard 03-22-2021 09:50-0500 Diastolic blood pressure 83 mm[Hg] Mellisa Adán MAIL DISTRIBUTOR Work Phone: [employer]; [employer]. Comment on above: Patient Position: Standing; Cuff Locatio n: Left Arm; Cuff Size: Large 03-22-2021 09:50-0500 Systolic blood pressure 161 mm[Hg] Mellisa Adán MAIL DISTRIBUTOR Work Phone: [employer]. Comment on above: Patient Position: Standing; Cuff Locatio n: Left Arm; Cuff Size: Large 03-22-2021 09:50-0500 Body height 167.64 cm Mellisa Antonioy MAIL DISTRIBUTOR Work Phone: [employer]; [employer]. 03-22-2021 09:50-0500 Body mass index (BMI) [Ratio] 30.67 kg/m2 Mellisa Adán MAIL DISTRIBUTOR Work Phone: [employer]; [employer]. 03-22-2021 09:50-0500 Body surface area Derived from formula 1.96 m2 [facility] Work Phone: [employer]; [employer]. 03-22-2021 09:50-0500 Body weight 86.18 kg Mellisa Adán MAIL DISTRIBUTOR Work Phone: [employer]; [employer]. 03-22-2021 09:50-0500 Diastolic blood pressure 72 mm[Hg] Mellisa Adán MAIL DISTRIBUTOR Work Phone: [employer]; [employer]. Comment on above: Patient Position: Sitting; Cuff Location : Left Arm; Cuff Size: Large 03-22-2021 09:50-0500 Heart rate 59 /min Mellisa Adán MAIL DISTRIBUTOR Work Phone: [employer]; [employer]. Comment on above: Pattern: Regular 03-22-2021 09:50-0500 Systolic blood pressure 175 mm[Hg] Mellisa Adán MAIL DISTRIBUTOR Work Phone: [employer]; [employer]. Comment on above: Patient Position: Sitting; Cuff Location : Left Arm; Cuff Size: Large 05-08-2020 10:42-0500 Body height 172.72 cm Salty Ramos MD Work Phone: [employer]; [employer] 05-08-2020 10:42-0500 Body mass index (BMI) [Ratio] 29.65 kg/m2 Salty Ramos MD Work Phone: [employer]. 05-08-2020 10:42-0500 Body surface area Derived from formula 2.02 m2 Salty Ramos MD Work Phone: [employer]. 05-08-2020 10:42-0500 Body weight 88.45 kg Salty Ramos MD Work Phone: [employer]. 05-08-2020 10:42-0500 Diastolic blood pressure 73 mm[Hg] Salty Ramos MD Work Phone: [employer]; [employer]. Comment on above: Patient Position: Sitting; Cuff Location : Left Arm; Cuff Size: Standard 05-08-2020 10:42-0500 Heart rate 70 /min Salty Ramos MD Work Phone: [employer]; [employer]. Comment on above: Pattern: Regular 05-08-2020 10:42-0500 Systolic blood pressure 128 mm[Hg] Salty Ramos MD Work Phone: [employer]; [employer]. Comment on above: Patient Position: Sitting; Cuff Location : Left Arm; Cuff Size: Standard 10-22-2019 11:17040 Body height 172.72 cm [facility] Work Phone: [employer]; [employer]. 10-22-2019 11:17-0400 Body mass index (BMI) [Ratio] 30.11 kg/m2 [facility] Work Phone: [employer]. 10-22-2019 11:17-0400 Body surface area Derived from formula 2.04 m2 [facility] Work Phone: [employer]; [employer]. 10-22-2019 11:17-0400 Body weight 89.81 kg Mellisa Adán MAIL DISTRIBUTOR Work Phone: [employer]. 10-22-2019 11:17-0400 Diastolic blood pressure 73 mm[Hg] Mellisa Adán MAIL DISTRIBUTOR Work Phone: [employer]. Comment on above: Patient Position: Sitting; Cuff Location : Left Arm; Cuff Size: Standard 10-22-2019 11:17-0400 Heart rate 67 /min Mellisa Adán MAIL DISTRIBUTOR Work Phone: [employer]. Comment on above: Pattern: Regular 10-22-2019 11:17-0400 Systolic blood pressure 171 mm[Hg] Mellisa Adán MAIL DISTRIBUTOR Work Phone: [employer].; [employer]. Comment on above: Patient Position: Sitting; Cuff Location : Left Arm; Cuff Size: Standard 07-02-2019 08:59-0500 Body height 172.72 cm Mellisa Adán MAIL DISTRIBUTOR Work Phone: [employer]. 07-02-2019 08:59-0500 Body mass index (BMI) [Ratio] 29.95 kg/m2 Mellisa Adán MAIL DISTRIBUTOR Work Phone: [employer].; [employer]. 07-02-2019 08:59-0500 Body surface area Derived from formula 2.03 m2 Mellisa Adán MAIL DISTRIBUTOR Work Phone: [employer].; [employer]. 07-02-2019 08:59-0500 Body weight 89.36 kg Mellisa Adán MAIL DISTRIBUTOR Work Phone: [employer].; [employer]. 07-02-2019 08:59-0500 Diastolic blood pressure 70 mm[Hg] Mellisa Adán MAIL DISTRIBUTOR Work Phone: [employer].; [employer]. Comment on above: Patient Position: Sitting; Cuff Location : Left Arm; Cuff Size: Large 07-02-2019 08:59-0500 Heart rate 57 /min Mellisa Adán MAIL DISTRIBUTOR Work Phone: [employer].; [employer]. Comment on above: Pattern: Regular 07-02-2019 08:59-0500 Systolic blood pressure 126 mm[Hg] Mellisa Adán MAIL DISTRIBUTOR Work Phone: [employer].; [employer]. Comment on above: Patient Position: Sitting; Cuff Location : Left Arm; Cuff Size: Large 12-30-2018 09:01-0400 Body height 172.72 cm Mellisa Adán MAIL DISTRIBUTOR Work Phone: [employer].; [employer]. 12-30-2018 09:01-0400 Body mass index (BMI) [Ratio] 29.5 kg/m2 Mellisa Adán MAIL DISTRIBUTOR Work Phone: [employer].; [employer]. 12-30-2018 09:01-0400 Body surface area Derived from formula 2.02 m2 Mellisa Adán MAIL DISTRIBUTOR Work Phone: [employer]; [employer]. 12-30-2018 09:01-0400 Body weight 88 kg Mellisa Adán MAIL DISTRIBUTOR Work Phone: [employer].; [employer]. 12-30-2018 09:01-0400 Diastolic blood pressure 67 mm[Hg] Mellisa Adán MAIL DISTRIBUTOR Work Phone: [employer].; [employer]. Comment on above: Patient Position: Sitting; Cuff Location : Left Arm; Cuff Size: Large 12-30-2018 09:01-0400 Heart rate 59 /min Mellisa Adán MAIL DISTRIBUTOR Work Phone: [employer].; [employer]. Comment on above: Pattern: Regular 12-30-2018 09:01-0400 Systolic blood pressure 139 mm[Hg] Mellisa Adán MAIL DISTRIBUTOR Work Phone: [employer]. Comment on above: Patient Position: Sitting; Cuff Location : Left Arm; Cuff Size: Large 09-30-2018 09:04-0400 Body height 172.72 cm Neilee L Vess MAIL DISTRIBUTOR [employer]. 09-30-2018 09:04-0400 Body mass index (BMI) [Ratio] 29.5 kg/m2 Neilee L Vess MAIL DISTRIBUTOR [employer]. 09-30-2018 09:04-0400 Body surface area Derived from formula 2.02 m2 Neilee L Vess MAIL DISTRIBUTOR [employer].; [employer]. 09-30-2018 09:04-0400 Body weight 88 kg Neilee L Vess MAIL DISTRIBUTOR [employer].; [employer]. 09-30-2018 09:04-0400 Diastolic blood pressure 74 mm[Hg] Neilee L Vess MAIL DISTRIBUTOR [employer].; [employer]. Comment on above: Patient Position: Sitting; Cuff Location : Left Arm; Cuff Size: Standard 09-30-2018 09:04-0400 Heart rate 62 /min MROilee L Vess MAIL DISTRIBUTOR [employer].; [employer]. Comment on above: Pattern: Regular 09-30-2018 09:04-0400 Systolic blood pressure 165 mm[Hg] Neilee L Vess MAIL DISTRIBUTOR [employer].; [employer]. Comment on above: Patient Position: Sitting; Cuff Location : Left Arm; Cuff Size: Standard 08-26-2018 15:38-0400 Body height 172.72 cm Mellisa Adán MAIL DISTRIBUTOR Work Phone: [employer].; [employer]. 08-26-2018 15:38-0400 Body mass index (BMI) [Ratio] 29.8 kg/m2 MellisaKymeta MAIL DISTRIBUTOR Work Phone: [employer] 08-26-2018 15:38-0400 Body surface area Derived from formula 2.03 m2 Mellisa Mccain LPN Work Phone: [employer]. 08-26-2018 15:38-0400 Body temperature 99.1 [degF] Mellias Mccain LPN Work Phone: [employer]. Comment on above: Method: Tympanic 08-26-2018 15:38-0400 Body weight 88.91 kg Mellisa Mccain LPN Work Phone: [employer]. 08-26-2018 15:38-0400 Diastolic blood pressure 73 mm[Hg] Mellisa Mccain LPN Work Phone: [employer]. Comment on above: Patient Position: Sitting; Cuff Location : Left Arm; Cuff Size: Standard 08-26-2018 15:38-0400 Heart rate 60 /min Mellisa Mccain LPN Work Phone: [facility]; [employer]. Comment on above: Pattern: Regular 08-26-2018 15:38-0400 Systolic blood pressure 155 mm[Hg] Mellisa Mccain LPN Work Phone: [facility]; [employer]. Comment on above: Patient Position: Sitting; Cuff Location : Left Arm; Cuff Size: Standard 06-30-2018 08:41-0500 Body height 172.72 cm Salty Ramos MD Work Phone: [facility]; [employer]. 06-30-2018 08:41-0500 Body mass index (BMI) [Ratio] 28.59 kg/m2 Salty Ramos MD Work Phone: [employer]. 06-30-2018 08:41-0500 Body surface area Derived from formula 1.99 m2 Salty Ramos MD Work Phone: [facility]; [employer]. 06-30-2018 08:41-0500 Body weight 85.28 kg Salty Ramos MD Work Phone: [facility]; [employer]. 06-30-2018 08:41-0500 Diastolic blood pressure 75 mm[Hg] Salty Ramos MD Work Phone: [employer]. Comment on above: Patient Position: Sitting; Cuff Location : Left Arm; Cuff Size: Standard 06-30-2018 08:41-0500 Heart rate 56 /min Salty Ramos MD Work Phone: [facility]; [employer]. Comment on above: Pattern: Regular 06-30-2018 08:41-0500 Systolic blood pressure 128 mm[Hg] Salty Ramos MD Work Phone: [facility]; [employer]. Comment on above: Patient Position: Sitting; Cuff Location : Left Arm; Cuff Size: Standard 06-16-2018 09:40-0500 Body height 172.72 cm Tish Alexander LPN [employer]. 06-16-2018 09:40-0500 Body mass index (BMI) [Ratio] 29.5 kg/m2 Tish Alexander LPN [employer]. 06-16-2018 09:40-0500 Body surface area Derived from formula 2.02 m2 Tish Alexander LPN [employer]. 06-16-2018 09:40-0500 Body temperature 98.6 [degF] Tish Alexander LPN [employer]. 06-16-2018 09:40-0500 Body weight 88 kg Tish Alexander LPN [employer]. 06-16-2018 09:40-0500 Diastolic blood pressure 75 mm[Hg] Tish Alexander LPN [employer]. Comment on above: Patient Position: Sitting; Cuff Location : Left Arm; Cuff Size: Standard 06-16-2018 09:40-0500 Heart rate 70 /min Tish Alexander LPN [employer]. Comment on above: Pattern: Regular 06-16-2018 09:40-0500 Systolic blood pressure 150 mm[Hg] Tish Alexander LPN [employer]. Comment on above: Patient Position: Sitting; Cuff Location : Left Arm; Cuff Size: Standard 04-10-2018 11:30-0500 Body height 172.72 cm Mellisa Mccain LPN Work Phone: [employer]. 04-10-2018 11:30-0500 Body mass index (BMI) [Ratio] 30.11 kg/m2 Mellisa Adán MAIL DISTRIBUTOR Work Phone: [employer]. 04-10-2018 11:30-0500 Body surface area Derived from formula 2.04 m2 Mellisa Adán MAIL DISTRIBUTOR Work Phone: [employer]. 04-10-2018 11:30-0500 Body temperature 99.6 [degF] Mellisa Mccain LPN Work Phone: [employer]. Comment on above: Method: Tympanic 04-10-2018 11:30-0500 Body weight 89.81 kg Mellisa Adán MAIL DISTRIBUTOR Work Phone: [employer]. 04-10-2018 11:30-0500 Diastolic blood pressure 75 mm[Hg] Mellisa Adán MAIL DISTRIBUTOR Work Phone: [employer]. Comment on above: Patient Position: Sitting; Cuff Location : Left Arm; Cuff Size: Large 04-10-2018 11:30-0500 Heart rate 88 /min Mellisa Mccain MAIL DISTRIBUTOR Work Phone: [employer]. Comment on above: Pattern: Regular 04-10-2018 11:30-0500 Systolic blood pressure 172 mm[Hg] Mellisa Mccain LPN Work Phone: [facility]; [facility] Comment on above: Patient Position: Sitting; Cuff Location : Left Arm; Cuff Size: Large Encounters Encounter Date Encounter Type Care Provider Facility Start: 04-12-2025 ambulatory Salty Gurrola ty:[facility] Start: 12-16-2024 End: 12-16-2024 Orders Salty Ramos MD Work Phone: [facility] Start: 09-23-2024 End: 09-23-2024 Office outpatient visit 25 minutes Salty Ramos MD Work Phone: [facility] Start: 09-23-2024 End: 09-23-2024 Orders Salty Ramos MD Work Phone: [facility] Start: 09-09-2024 End: 09-09-2024 Historical Summary Salty Ramos MD Work Phone: [facility] Start: 06-24-2024 End: 06-24-2024 Office outpatient visit 25 minutes Salty Ramos MD Work Phone: [facility] Start: 06-24-2024 Follow-up encounter Salty prieto MD Work Phone: [facility] Start: 03-25-2024 End: 03-25-2024 Patient encounter procedure Salty Ramos MD Work Phone: [facility] Start: 03-25-2024 Follow-up encounter Salty prieto MD Work Phone: [facility] Start: 03-25-2024 Patient encounter procedure Salty Ramos MD Work Phone: CX; [facility] Start: 03-25-2024 Telephone follow-up Salty prieto MD Work Phone: [facility] Start: 03-17-2024 End: 03-17-2024 ambulatory SALTY RAMOS [facility] Start: 01-19-2024 End: 01-19-2024 Orders Salty Ramos MD Work Phone: [facility] Start: 10-29-2023 End: 10-29-2023 Office outpatient visit 25 minutes Salty Ramos MD Work Phone: [employer] Start: 10-29-2023 Review Salty hamiltno MD Work Phone: [facility] Start: 03-31-2023 End: 03-31-2023 Historical Summary Salty Ramos MD Work Phone: [facility] Start: 03-27-2023 End: 03-27-2023 Patient encounter procedure Salty Ramos MD Work Phone: [facility] Start: 03-18-2023 End: 03-19-2023 Orders Salty Ramos MD Work Phone: [facility] Start: 01-16-2023 End: 01-16-2023 Orders Salty Ramos MD Work Phone: [facility] Start: 10-23-2022 End: 10-23-2022 Patient encounter procedure Salty Ramos MD Work Phone: CX Start: 07-03-2022 End: 07-03-2022 Office outpatient visit 25 minutes Salty Ramos MD Work Phone: [facility] Start: 03-27-2022 End: 03-27-2022 Patient encounter procedure Salty Ramos MD Work Phone: [facility] Start: 03-21-2022 End: 03-21-2022 Orders Salty Ramos MD Work Phone: [facility] Start: 03-20-2022 End: 03-20-2022 Orders Salty Ramos MD Work Phone: CX Start: 01-03-2022 End: 01-03-2022 ambulatory [facility] Work Phone: Start: 01-03-2022 End: 01-03-2022 Patient encounter procedure [facility] Start: 12-19-2021 End: 12-19-2021 Patient encounter procedure Salty Ramos MD Work Phone: CX Start: 11-21-2021 End: 11-21-2021 Orders Salty Ramos MD Work Phone: [facility] Start: 11-20-2021 End: 11-20-2021 Office outpatient visit 15 minutes Salty Ramos MD Work Phone: [facility] Start: 05-07-2021 End: 05-07-2021 Nursing evaluation of patient and report Salty Ramos MD Work Phone: [facility] Start: 03-22-2021 End: 03-22-2021 Patient encounter procedure Salty Ramos MD Work Phone: [facility] Start: 03-22-2021 End: 03-22-2021 Physical examination Salty Ramos MD Work Phone: [facility]; [employer]. Start: 03-15-2021 End: 03-15-2021 Orders Salty Ramos MD Work Phone: [facility] Start: 01-16-2021 End: 01-17-2021 Orders Salty Ramos MD Work Phone: [facility] Start: 05-08-2020 End: 05-08-2020 Patient encounter procedure Salty Ramos MD Work Phone: [facility] Start: 11-09-2019 End: 11-09-2019 Historical Summary Salty Ramos MD Work Phone: [facility] Start: 10-22-2019 End: 10-22-2019 Patient encounter procedure Salty Ramos MD Work Phone: [facility] Start: 10-22-2019 End: 10-22-2019 Patient encounter status Salty Ramos MD Work Phone: [employer]. Start: 10-22-2019 End: 10-22-2019 Preprocedural examination done Salty Ramos MD Work Phone: [facility]; [employer]. Start: 10-12-2019 End: 10-12-2019 Orders Salty Ramos MD Work Phone: [facility] Start: 10-12-2019 End: 10-12-2019 Preprocedural examination done Salty Ramos MD Work Phone: [facility]; [employer]. Start: 09-03-2019 End: 09-03-2019 Orders Salty Ramos MD Work Phone: [facility] Start: 07-02-2019 End: 07-02-2019 Office outpatient visit 15 minutes Salty Ramos MD Work Phone: [facility] Start: 12-30-2018 End: 12-30-2018 Patient encounter procedure Salty Ramos MD Work Phone: [facility] Start: 12-28-2018 End: 12-28-2018 Orders Salty Ramos MD Work Phone: [facility] Start: 09-30-2018 End: 09-30-2018 Patient encounter procedure Salty Ramos MD Work Phone: CX Start: 08-26-2018 End: 08-26-2018 Patient encounter procedure Salty Ramos MD Work Phone: [facility] Start: 06-30-2018 End: 06-30-2018 Orders Salty Ramos MD Work Phone: [facility] Start: 06-30-2018 End: 06-30-2018 Patient encounter procedure Salty Ramos MD Work Phone: CX Start: 06-30-2018 End: 06-30-2018 Patient encounter status Salty Ramos MD Work Phone: [facility]; [employer]. Start: 06-16-2018 End: 06-16-2018 Patient encounter procedure Salty Ramos MD Work Phone: CX Start: 04-10-2018 End: 04-10-2018 Historical Summary Salty Ramos MD Work Phone: [facility] Start: 04-10-2018 End: 04-10-2018 Patient encounter procedure Salty Ramos MD Work Phone: CX Start: 02-19-2017 Ambulatory [facility] Gurrola ty:[facility] Patient encounter procedure Mellisa Mccain MAIL DISTRIBUTOR Work Phone: [facility]; [employer]. Patient encounter procedure Mellisa Mccain MAIL DISTRIBUTOR Work Phone: [facility]; [employer]. Patient encounter status Mellisa mcpherson MAIL DISTRIBUTOR Work Phone: CX; [facility] Procedures Date Procedure Procedure Detail Performing Clinician Start: 12-01-2024 End: 12-01-2024 Most Recent Endo Report Salty Ramos MD Work Phone: Comment on above: no records Start: 09-23-2024 End: 09-23-2024 Most recent hg a1c>equal to 7.0%&<8.0% Salty Ramos MD Work Phone: Start: 09-09-2024 End: 09-09-2024 Most Recent Endo Report Mellisa Adán GURROLAN Work Phone: Comment on above: no records Start: 03-25-2024 End: 03-25-2024 Adv care pln/ no alt dcsn mkr docd or refusal Salty Ramos MD Work Phone: Start: 03-25-2024 End: 03-25-2024 Body mass index documented Salty walsh MD Work Phone: Start: 03-25-2024 End: 03-25-2024 Depression screening Salty Ramos MD Work Phone: Start: 03-25-2024 End: 03-25-2024 Docrev cur meds by demond Ramos MD Work Phone: Start: 03-25-2024 End: 03-25-2024 Falls risk assessment documented Salty Ramos MD Work Phone: Start: 03-25-2024 End: 03-25-2024 Most recent diastolic blood pressure 80-89 mm hg Salty Ramos MD Work Phone: Start: 03-25-2024 End: 06-03-2024 Most recent hg a1c>equal to 8.0%& Salty Ramos MD Work Phone: Start: 03-25-2024 End: 03-25-2024 Most recent systolic blood pres>/equal 140 mm hg Salty Ramos MD Work Phone: Start: 03-25-2024 End: 03-25-2024 PPPS, subseq visit Salty Ly Work Phone: Start: 03-25-2024 End: 03-25-2024 Pt falls assess docd w/o fall/injury past year Salty Ramos MD Work Phone: Start: 03-25-2024 End: 03-25-2024 Scr dep neg, no plan reqd Salty castro MD Work Phone: Start: 03-25-2024 End: 03-25-2024 uACR Salty Ly Work Phone: Comment on above: Negative Finding. cr eatinine 42 albumin 0.2 ratio5 Start: 03-17-2024 End: 03-17-2024 Hemoglobin A1c/Hemoglobin.total in Blood Mellisa Mccain MAIL DISTRIBUTOR Work Phone: Comment on above: Abnormal. 8.0 Start: 03-17-2024 End: 03-17-2024 Lipid panel Mellisa Mccain MAIL DISTRIBUTOR Work Phone: Comment on above: Normal. tc 189 hdl 5 7 ldl 107 trig 127 Start: 11-25-2023 End: 11-25-2023 Screening mammography Salty Ramos MD Work Phone: Comment on above: Within Normal Limits . 09/27/17 NEG, 12/02/18 NEG, 03/29/20 neg--Dr Cooper orders, 01/03/22 neg, 11/25/2023 neg Start: 10-29-2023 End: 10-29-2023 Most recent diastolic blood pressure < 80 mm hg Salty Ramos MD Work Phone: Start: 10-29-2023 End: 10-29-2023 Most recent hg a1c>equal to 7.0%&<8.0% Salty Ramos MD Work Phone: Start: 10-29-2023 End: 10-29-2023 Most recent systolic blood pressure <130 mm hg Salty Ramos MD Work Phone: Start: 10-29-2023 End: 12-01-2023 Screening digital breast tomosynthesis bi Salty Ramos MD Work Phone: Start: 03-28-2023 End: 03-28-2023 uACR Mellisa Mccain MAIL DISTRIBUTOR Work Phone: Comment on above: Negative Finding. cr eatinine 42 albumin 0.2 ratio5 Start: 03-27-2023 End: 03-27-2023 Adv care pln/ no alt dcsn mkr docd or refusal Salty Ramos MD Work Phone: Start: 03-27-2023 End: 03-27-2023 Body mass index documented Salty walsh MD Work Phone: Start: 03-27-2023 End: 03-27-2023 Depression screening Salty Ramos MD Work Phone: Start: 03-27-2023 End: 03-27-2023 Docrev cur meds by demond Ramos MD Work Phone: Start: 03-27-2023 End: 03-27-2023 Falls risk assessment documented Salty Ramos MD Work Phone: Start: 03-27-2023 End: 03-27-2023 Most recent diastolic blood pressure < 80 mm hg Salty Ramos MD Work Phone: Start: 03-27-2023 End: 03-27-2023 Most recent hg a1c>equal to 7.0%&<8.0% aSlty Ramos MD Work Phone: Start: 03-27-2023 End: 03-27-2023 Most recent systolic blood pres>/equal 140 mm hg Salty Ramos MD Work Phone: Start: 03-27-2023 End: 03-27-2023 PPPS, subseq visit Salty Ly Work Phone: Start: 03-27-2023 End: 03-27-2023 Pt falls assess docd w/o fall/injury past year Salty Ramos MD Work Phone: Start: 03-27-2023 End: 03-27-2023 Scr dep neg, no plan reqd Salty castro MD Work Phone: Start: 03-18-2023 End: 03-18-2023 Hemoglobin A1c/Hemoglobin.total in Blood Mellisamoises Mccain MAIL DISTRIBUTOR Work Phone: Comment on above: Abnormal. 7.5 Start: 03-18-2023 End: 03-18-2023 Lipid panel Mellisa Mccain LPN Work Phone: Comment on above: Normal. tc 243 hdl 5 1 ldl 162 trig 155 Start: 10-23-2022 End: 10-23-2022 Most recent diastolic blood pressure < 80 mm hg Salty Ramos MD Work Phone: Start: 10-23-2022 End: 10-23-2022 Most recent hg a1c>equal to 7.0%&<8.0% Salty Ramos MD Work Phone: Start: 10-23-2022 End: 10-23-2022 Most recent systolic blood press 130-139mm hg Salty Ramos MD Work Phone: Start: 03-27-2022 End: 03-27-2022 Adv care pln/ no alt dcsn mkr docd or refusal Salty Ramos MD Work Phone: Start: 03-27-2022 End: 03-27-2022 Body mass index documented Salty walsh MD Work Phone: Start: 03-27-2022 End: 03-27-2022 Depression screening Salty Ramos MD Work Phone: Start: 03-27-2022 End: 03-27-2022 Dilated retinal exam w/evidence of retinopathy Salty Ramos MD Work Phone: Start: 03-27-2022 End: 03-27-2022 Docrev cur meds by demond Ramos MD Work Phone: Start: 03-27-2022 End: 03-27-2022 Falls risk assessment documented Salty Ramos MD Work Phone: Start: 03-27-2022 End: 03-27-2022 Flu immunize order/admin Salty tompkins MD Work Phone: Start: 03-27-2022 End: 03-27-2022 Most recent diastolic blood pressure < 80 mm hg Salty Ramos MD Work Phone: Start: 03-27-2022 End: 03-27-2022 Most recent hemoglobin a1c level >9.0% Salty Ramos MD Work Phone: Start: 03-27-2022 End: 03-27-2022 Most recent systolic blood pressure <130 mm hg Salty Ramos MD Work Phone: Start: 03-27-2022 End: 03-27-2022 Negative microalbuminuria test result doc&rev Salty Ramos MD Work Phone: Start: 03-27-2022 End: 03-27-2022 Pneumococcal vaccine admin rcvd prior Salty Ramos MD Work Phone: Start: 03-27-2022 End: 03-27-2022 PPPS, initial visit Salty Ly Work Phone: Start: 03-27-2022 End: 03-27-2022 Pt falls assess docd w/o fall/injury past year Salty Ramos MD Work Phone: Start: 03-27-2022 End: 03-27-2022 Scr dep neg, no plan reqd Salty castro MD Work Phone: Start: 03-27-2022 End: 03-27-2022 UA P:C Ratio Mellisa Mccain MAIL DISTRIBUTOR Work Phone: Comment on above: Abnormal. Start: 01-23-2022 End: 01-23-2022 Examination of retina Mellisa Mccain MAIL DISTRIBUTOR Work Phone: Comment on above: Negative Finding. No Diabetic Retinopathy. [facility] Negative Finding. No Diabetic Retinopathy. [facility] as of 03/25/2024 has not gone back due to poor experience last time. Recommended [facility] as alternative Start: 01-03-2022 End: 01-03-2022 Screening mammography Mellisa Mccain MAIL DISTRIBUTOR Work Phone: Comment on above: Within Normal Limits . 09/27/17 NEG, 12/02/18 NEG, 03/29/20 neg--Dr Cooepr orders, 01/03/22 neg Start: 12-19-2021 End: 01-04-2022 Screening mammography bi 2-view breast inc cad Salty Ramos MD Work Phone: Start: 03-22-2021 End: 03-22-2021 Body mass index documented Salty walsh MD Work Phone: Start: 03-22-2021 End: 03-22-2021 Depression screening Salty Ramos MD Work Phone: Start: 03-22-2021 End: 03-22-2021 Dilated retinal exam w/evidence of retinopathy Salty Ramos MD Work Phone: Start: 03-22-2021 End: 03-22-2021 Docrev cur meds by demond Ramos MD Work Phone: Start: 03-22-2021 End: 03-22-2021 Falls risk assessment documented Salty Ramos MD Work Phone: Start: 03-22-2021 End: 03-22-2021 Flu immunize order/admin Salty tompkins MD Work Phone: Start: 03-22-2021 End: 03-22-2021 Initial preventive exam Salty hamilton MD Work Phone: Start: 03-22-2021 End: 03-22-2021 Most recent diastolic blood pressure 80-89 mm hg Salty Ramos MD Work Phone: Start: 03-22-2021 End: 08-23-2021 Most recent hg a1c>equal to 7.0%&<8.0% Salty Ramos MD Work Phone: Start: 03-22-2021 End: 03-22-2021 Most recent systolic blood pres>/equal 140 mm hg Salty Ramos MD Work Phone: Start: 03-22-2021 End: 03-22-2021 Negative microalbuminuria test result doc&rev Salty Ramos MD Work Phone: Start: 03-22-2021 End: 03-22-2021 Pt falls assess docd w/o fall/injury past year Salty Ramos MD Work Phone: Start: 03-22-2021 End: 03-22-2021 Pt not currently on statin Salty walsh MD Work Phone: Start: 03-22-2021 End: 03-22-2021 Scr dep neg, no plan reqd Salty castro MD Work Phone: Start: 03-22-2021 End: 03-22-2021 Screening test visual acuity quantitative bilat Salty Ramos MD Work Phone: Start: 05-08-2020 End: 05-08-2020 Most recent diastolic blood pressure < 80 mm hg Salty Ramos MD Work Phone: Start: 05-08-2020 End: 05-08-2020 Most recent hemoglobin a1c level < 7.0% Salty Ramos MD Work Phone: Start: 05-08-2020 End: 05-08-2020 Most recent systolic blood pressure <130 mm hg Salty Ramos MD Work Phone: Start: 10-22-2019 End: 10-22-2019 Docrev cur meds by demond Ramos MD Work Phone: Start: 10-22-2019 End: 10-22-2019 Most recent diastolic blood pressure < 80 mm hg Salty Ramos MD Work Phone: Start: 10-22-2019 End: 02-19-2021 Most recent hg a1c>equal to 7.0%&<8.0% Salty Ramos MD Work Phone: Start: 10-22-2019 End: 10-22-2019 Most recent systolic blood pres>/equal 140 mm hg Salty Ramos MD Work Phone: Start: 10-22-2019 End: 10-22-2019 Physical/Wellness Celeste Sanders [facility] Start: 07-02-2019 End: 07-02-2019 Body mass index documented Salty walsh MD Work Phone: Start: 07-02-2019 End: 07-02-2019 Dilated retinal exam w/evidence of retinopathy Salty Ramos MD Work Phone: Start: 07-02-2019 End: 07-02-2019 Docrev cur meds by demond Ramos MD Work Phone: Start: 07-02-2019 End: 07-02-2019 Most recent diastolic blood pressure < 80 mm hg Salty Ramos MD Work Phone: Start: 07-02-2019 End: 07-02-2019 Most recent hemoglobin a1c level < 7.0% Salty Ramos MD Work Phone: Start: 07-02-2019 End: 07-02-2019 Most recent systolic blood pressure <130 mm hg Salty Ramos MD Work Phone: Start: 07-02-2019 End: 07-02-2019 Positive microalbuminuria test result doc&rev Salty Ramos MD Work Phone: Start: 06-18-2019 End: 06-18-2019 FIT DNA test Mellisa Mccain LPN Work Phone: Comment on above: Negative Finding. co logard Start: 12-30-2018 End: 12-30-2018 Body mass index documented Salty walsh MD Work Phone: Start: 12-30-2018 End: 12-30-2018 Dilated retinal exam w/evidence of retinopathy Salty Ramos MD Work Phone: Start: 12-30-2018 End: 12-30-2018 Docrev cur meds by demond Ramos MD Work Phone: Start: 12-30-2018 End: 12-30-2018 Most recent diastolic blood pressure < 80 mm hg Salty Ramos MD Work Phone: Start: 12-30-2018 End: 12-30-2018 Most recent hemoglobin a1c level < 7.0% Salty Ramos MD Work Phone: Start: 12-30-2018 End: 12-30-2018 Most recent systolic blood press 130-139mm hg Salty Ramos MD Work Phone: Start: 09-30-2018 End: 09-30-2018 Most recent hemoglobin a1c level >9.0% Salty Ramos MD Work Phone: Start: 06-30-2018 End: 06-30-2018 Body mass index documented Salty awlsh MD Work Phone: Start: 06-30-2018 End: 06-30-2018 Current tobacco non-user cad cap copd pv dm Salty Ramos MD Work Phone: Start: 06-30-2018 End: 06-30-2018 Depression screening Salty Ramos MD Work Phone: Start: 06-30-2018 End: 06-30-2018 Dilated retinal exam w/evidence of retinopathy Salty Ramos MD Work Phone: Start: 06-30-2018 End: 06-30-2018 Docrev cur meds by demond Ramos MD Work Phone: Start: 06-30-2018 End: 06-30-2018 Most recent diastolic blood pressure < 80 mm hg Salty Ramos MD Work Phone: Start: 06-30-2018 End: 06-30-2018 Most recent hemoglobin a1c level gt 7.0-9.0 % Salty Ramos MD Work Phone: Start: 06-30-2018 End: 06-30-2018 Most recent systolic blood pressure <130 mm hg Salty Ramos MD Work Phone: Start: 06-30-2018 End: 06-24-2019 Oncology colorectal screening eva 10 dna markrs Salty Ramos MD Work Phone: Start: 06-30-2018 End: 06-30-2018 Pt not currently on statin Salty walsh MD Work Phone: Start: 06-30-2018 End: 06-30-2018 Scr dep neg, no plan reqd Salty castro MD Work Phone: Start: 08-10-2015 End: 08-10-2015 tdap Celeste Sanders [employer] H/O: hysterectomy H/O: hysterectomy Mellisa Mccain LPN Work Phone: H/O: hysterectomy H/O: hysterectomy Salty Ramos MD Work Phone: H/O: hysterectomy H/O: hysterectomy Salty Ramos MD Work Phone: H/O: hysterectomy H/O: hysterectomy Salty Ramos MD Work Phone: H/O: hysterectomy H/O: hysterectomy Mellisa Adán MAIL DISTRIBUTOR Work Phone: H/O: hysterectomy H/O: hysterectomy Mellisa Adán MAIL DISTRIBUTOR Work Phone: Total hysterectomy Mellisa Melania vivek MAIL DISTRIBUTOR Work Phone: Total hysterectomy Mellisa Melania vivek MAIL DISTRIBUTOR Work Phone: Total hysterectomy Mellisa Melania vivek MAIL DISTRIBUTOR Work Phone: Plan of Treatment Date Care Activity Detail Author Start: 04-15-2025 Patient encounter procedure Medical; PHYSICAL - [facility] CX Start: 15-Apr-2025 14:30-05:00 MD Salty Ramos Appointment Request [employer] Start: 12-16-2024 Hemoglobin glycosyla christie a1c Hgb A1c (fingerstick)([id number]) Start: 16-Dec-2024 16:48-04:00 Request CX; [employer]. Start: 12-16-2024 Nursing evaluation o f patient and report CX Start: 09-23-2024 Patient encounter procedure CX Start: 06-24-2024 Patient encounter procedure [employer]. Start: 03-25-2024 Patient encounter procedure Medical; PHYSICAL - physical [employer]. Start: 25-Mar-2024 14:10-05:00 MD Salty Ramos Appointment Request CX Start: 03-25-2024 Most recent hg a1c>e qual to 8.0%& MOST RECENT HEMOGLOBIN A1C LEVEL 8.0-9.0% (3052F) Start: 25-Mar-2024 Intent [employer] [employer]. Start: 03-25-2024 Urine albumin quantitative KELI ROALBUMIN, RANDOM URINE W/ CREATININE [uACR] ([id number]) ([id number]) Start: 25-Mar-2024 10:06-05:00 Request [employer] [employer] Start: 03-18-2024 Blood count complete auto&auto difrntl wbc CBC, PLATELETS & AUT DIFF (F) ([id number]) Start: 18-Mar-2024 Request [employer].; [employer] Start: 03-18-2024 Comprehensive metabo lic panel CMP w/ GFR* ([id number]) Start: 18-Mar-2024 Request [employer].; [employer] Start: 03-18-2024 Hemoglobin glycosyla christie a1c HEMOGLOBIN A1C* (40095) Start: 18-Mar-2024 Request [employer] Start: 03-18-2024 Lipid panel LIPID PANEL (8 0061) Start: 18-Mar-2024 Request [employer] Start: 03-18-2024 Nursing evaluation o f patient and report Medical; Nurse visit - fasting labs-- SHWETA [employer] Start: 18-Mar-2024 09:20-05:00 NURSE, FLOAT Appointment Request [employer]. Start: 10-29-2023 Patient encounter procedure Medical; EXTENDED RTN - rtn [employer]. Start: 29-Oct-2023 15:50-04:00 MD Salty Ramos Appointment Request [employer]. Start: 10-29-2023 Screening digital br east tomosynthesis bi Mammogram 3D (tomosynthesis), bilateral ([id number]) Start: 29-Oct-2023 Intent [employer] Start: 03-27-2023 Lipid panel LIPID PANEL (8 0061) Start: 27-Mar-2023 15:02-05:00 Request [employer]. Start: 03-27-2023 Hemoglobin glycosyla christie a1c HEMOGLOBIN A1C* ([id number]) Start: 27-Mar-2023 15:01-05:00 Request [employer] Start: 03-27-2023 Screening mammograph y bi 2-view breast inc cad Mammogram Bilateral Screening Digital w/CAD (70661) with 3D (tomosynthesis), bilateral ([id number]) Start: 27-Mar-2023 Intent [employer] Start: 01-16-2023 Screening digital br east tomosynthesis bi Mammogram 3D (tomosynthesis), bilateral ([id number]) Start: 16-Jan-2023 Intent [employer] Immunizations Immunization Date Immunization Notes Care Provider Fa cili 03-09-2024 influenza, high dose seasonal, preservative-free Salty Ramos MD Work Phone: [employer]. 02-22-2023 influenza, high dose seasonal, preservative-free Salty Ramos MD Work Phone: [employer]. 03-21-2022 influenza, high dose seasonal, preservative-free Salty Ramos MD Work Phone: [employer]. 03-21-2022 Pneumococcal conjugate, 20 valent (PCV20) Salty Ramos MD Work Phone: [employer]. 03-01-2021 influenza, high dose seasonal, preservative-free Salty Ramos MD Work Phone: [employer]. 01-27-2020 influenza virus vaccine, unspecified formulation Salty Ramos MD Work Phone: [employer]; [employer]. Comment on above: at 01-27-2020 influenza, injectabl e, quadrivalent, contains preservative Salty Ramos MD Work Phone: [employer]; [employer]. 02-22-2019 influenza, injectabl e, quadrivalent, contains preservative Salty Ramos MD Work Phone: [facility]; [employer] Comment on above: 08-10-2015 tetanus toxoid, reduced diphtheria toxoid, and acellular pertussis vaccine, adsorbed Salty Ramos MD Work Phone: [employer]; [employer] Payers Date Payer Category Payer Self-pay [id number] Unknown [id number] 2015 Unknown [employer] [id number] 1955 Unknown [id number] Unknown [employer] [id number] Unknown [employer] - PRIMETIME Unknown [id number] Social History Date Type Detail Facility Tobacco smoking stat [facility] Unknown if ever smoked [facility] Work Phone: Start: 1955 Sex Assigned At Female W [facility] Work Phone: Marital status: Marital status: ; . [employer] Tobacco Use: Tobacco Use: ; N ever smoker. [employer] [facility] [employer] Work Phone: Never smoked tobacco [employer]; [employer] Work Phone: Medical Equipment Procedure Code Equipment Code Equipment Origin al Text Equipment Identifier Dates Blood Glucose Te st strips ; 1 (one) Each daily for 0 days Quantity: 100 {Each} Refills: 3 Ordered: 27-Mar-2023 KEIRY Mccain Start: 03-Jul-2022 End: 27-Mar-2023 Status: Inactive Comments: test once daily [id number] Start: 07-03-2022 End: 03-27-2023 Comment on above: test once daily lancets 33 gauge ; as directed for 0 days Quantity: 100 {Each} Refills: 3 Ordered: 27-Mar-2023 KEIRY Mccain Start: 03-Jul-2022 End: 27-Mar-2023 Status: Inactive [id number] Start: 07-03-2022 End: 03-27-2023 Evaluation note Note Date & Type Note Facility Evaluation note No assessment information [facility] Work Phone: Summary Purpose Family History No Family History Records Found Breast Cancer Status:Active Comments:Mother. Cerebrovascular Accident Status:Active Comment s:Father. Hypertension Status:Active Comments:Father. Lung Cancer Status:Active Comments:Brother . Breast Cancer Status:Active Comments:Mother. Cerebrovascular Accident Status:Active Comment s:Father. Hypertension Status:Active Comments:Father. Lung Cancer Status:Active Comments:Brother . Breast Cancer Status:Active Comments:Mother. Cerebrovascular Accident Status:Active Comment s:Father. Hypertension Status:Active Comments:Father. Lung Cancer Status:Active Comments:Brother . Breast Cancer Status:Active Comments:Mother. Cerebrovascular Accident Status:Active Comment s:Father. Hypertension Status:Active Comments:Father. Lung Cancer Status:Active Comments:Brother . Breast Cancer Status:Active Comments:Mother. Cerebrovascular Accident Status:Active Comment s:Father. Hypertension Status:Active Comments:Father. Lung Cancer Status:Active Comments:Brother . Breast Cancer Status:Active Comments:Mother. Cerebrovascular Accident Status:Active Comment s:Father. Hypertension Status:Active Comments:Father. Lung Cancer Status:Active Comments:Brother . Breast Cancer Status:Active Comments:Mother. Cerebrovascular Accident Status:Active Comment s:Father. Hypertension Status:Active Comments:Father. Lung Cancer Status:Active Comments:Brother . Breast Cancer Status:Active Comments:Mother. Cerebrovascular Accident Status:Active Comment s:Father. Hypertension Status:Active Comments:Father. Lung Cancer Status:Active Comments:Brother . Breast Cancer Status:Active Comments:Mother. Cerebrovascular Accident Status:Active Comment s:Father. Hypertension Status:Active Comments:Father. Lung Cancer Status:Active Comments:Brother . Breast Cancer Status:Active Comments:Mother. Cerebrovascular Accident Status:Active Comment s:Father. Hypertension Status:Active Comments:Father. Lung Cancer Status:Active Comments:Brother . Breast Cancer Status:Active Comments:Mother. Cerebrovascular Accident Status:Active Comment s:Father. Hypertension Status:Active Comments:Father. Lung Cancer Status:Active Comments:Brother . Breast Cancer Status:Active Comments:Mother. Cerebrovascular Accident Status:Active Comment s:Father. Hypertension Status:Active Comments:Father. Lung Cancer Status:Active Comments:Brother . Breast Cancer Status:Active Comments:Mother. Cerebrovascular Accident Status:Active Comment s:Father. Hypertension Status:Active Comments:Father. Lung Cancer Status:Active Comments:Brother . Breast Cancer Status:Active Comments:Mother. Cerebrovascular Accident Status:Active Comment s:Father. Hypertension Status:Active Comments:Father. Lung Cancer Status:Active Comments:Brother . Breast Cancer Status:Active Comments:Mother. Cerebrovascular Accident Status:Active Comment s:Father. Hypertension Status:Active Comments:Father. Lung Cancer Status:Active Comments:Brother . Breast Cancer Status:Active Comments:Mother. Cerebrovascular Accident Status:Active Comment s:Father. Hypertension Status:Active Comments:Father. Lung Cancer Status:Active Comments:Brother . Breast Cancer Status:Active Comments:Mother. Cerebrovascular Accident Status:Active Comment s:Father. Hypertension Status:Active Comments:Father. Lung Cancer Status:Active Comments:Brother . Breast Cancer Status:Active Comments:Mother. Cerebrovascular Accident Status:Active Comment s:Father. Hypertension Status:Active Comments:Father. Lung Cancer Status:Active Comments:Brother . Breast Cancer Status:Active Comments:Mother. Cerebrovascular Accident Status:Active Comment s:Father. Hypertension Status:Active Comments:Father. Lung Cancer Status:Active Comments:Brother . Breast Cancer Status:Active Comments:Mother. Cerebrovascular Accident Status:Active Comment s:Father. Hypertension Status:Active Comments:Father. Lung Cancer Status:Active Comments:Brother . Breast Cancer Status:Active Comments:Mother. Cerebrovascular Accident Status:Active Comment s:Father. Hypertension Status:Active Comments:Father. Lung Cancer Status:Active Comments:Brother . Breast Cancer Status:Active Comments:Mother. Cerebrovascular Accident Status:Active Comment s:Father. Hypertension Status:Active Comments:Father. Lung Cancer Status:Active Comments:Brother . Breast Cancer Status:Active Comments:Mother. Cerebrovascular Accident Status:Active Comment s:Father. Hypertension Status:Active Comments:Father. Lung Cancer Status:Active Comments:Brother . Breast Cancer Status:Active Comments:Mother. Cerebrovascular Accident Status:Active Comment s:Father. Hypertension Status:Active Comments:Father. Lung Cancer Status:Active Comments:Brother . Breast Cancer Status:Active Comments:Mother. Cerebrovascular Accident Status:Active Comment s:Father. Hypertension Status:Active Comments:Father. Lung Cancer Status:Active Comments:Brother . Breast Cancer Status:Active Comments:Mother. Cerebrovascular Accident Status:Active Comment s:Father. Hypertension Status:Active Comments:Father. Lung Cancer Status:Active Comments:Brother . Breast Cancer Status:Active Comments:Mother. Cerebrovascular Accident Status:Active Comment s:Father. Hypertension Status:Active Comments:Father. Lung Cancer Status:Active Comments:Brother . Breast Cancer Status:Active Comments:Mother. Cerebrovascular Accident Status:Active Comment s:Father. Hypertension Status:Active Comments:Father. Lung Cancer Status:Active Comments:Brother . Breast Cancer Status:Active Comments:Mother. Cerebrovascular Accident Status:Active Comment s:Father. Hypertension Status:Active Comments:Father. Lung Cancer Status:Active Comments:Brother . Advance Directives No Advanced Directives Records FoundNo Advanced Directives Records FoundNo Advanced Directives Records FoundNo Advanced Directives Records FoundNo Advanced Directives Records Found Chief Complaint and Reason for Visit Chief Complaint SCREENING Additional Source Comments INFORMATION SOURCE (unrecogn ized section and content) DATE CREATED AUTHOR 10/26/2017 [facility] ([place]) DATE CREATED AUTHOR AUTHOR'S ORGANIZ ATION 11/04/2017 [facility] DATE CREATED AUTHOR AUTHOR'S ORGANIZ ATION 03/17/2024 [facility] DATE CREATED AUTHOR AUTHOR'S ORGANIZ ATION 03/29/2024 [facility] DATE CREATED AUTHOR AUTHOR'S ORGANIZ ATION 03/20/2025 [facility] Goals (unrecognized section and content) Goals may be documented in a n alternate section FOR RECORDS PERTAINING TO PATIENTS WHO ARE OR HAVE BEEN ENROLLED IN A CHEMICAL DEPENDENCY/SUBSTANCEABUSE PROGRAM, SOME INFORMATION MAY BE OMITTED. This clinical summary was aggregated from multiple sources. Caution should be exercised in using it in the provision of clinical care. This summary normalizes information from multiple sources, and as a consequence, information in this document may materially change the coding, format and clinical context of patient data. In addition, data may be omitted in some cases. CLINICAL DECISIONS SHOULD BE BASED ON THE PRIMARY CLINICAL RECORDS. [employer] [facility]. provides no warranty or guarantee of the accuracy or completeness of information in this document.
== END | disposition home or self-care (01) ==
LOC: OPBI 04-13 07:06
PROVIDERS: PCP Family Medicine; Referring Provider Family Medicine; Visit Provider Family Medicine
DX: Z12.31 Encounter for screening mammogram for malignant neoplasm of breast (principal)
CPT/HCPCS: 77063; 77067